=== PATIENT | female | born 1955 | race Caucasian/White ===

== ENCOUNTER 2019-06-03 09:24 | Outpatient (RCR) | payer MEDICARE, OTHER, SELFPAY ==
[2019-06-03 09:42] VITALS: BMI 25.2
[2019-06-03 10:02] VITALS: BP 108/89; PULSE 98; RESP 18; TEMP 36.3; O2SAT 94
== END 2019-06-08 23:59 | disposition home or self-care (01) ==
LOC: GILAB 09:24
PROVIDERS: PCP Family Medicine; Visit Provider Internal Medicine
DX: K51.90 Ulcerative colitis, unspecified, without complications (principal)
CPT/HCPCS: 96365; J1745; J7050

== ENCOUNTER 2019-06-17 09:19 | Outpatient (RCR) | payer MEDICARE, OTHER, SELFPAY ==
[2019-06-17 09:50] VITALS: BP 113/74; PULSE 85; RESP 18; TEMP 36.7; O2SAT 93; BMI 25.2
== END 2019-07-09 23:59 | disposition home or self-care (01) ==
LOC: GILAB 09:19
PROVIDERS: PCP Family Medicine; Visit Provider Internal Medicine
DX: K51.90 Ulcerative colitis, unspecified, without complications (principal)
CPT/HCPCS: 96365; 96366; J1745; J7050

== ENCOUNTER 2019-07-29 11:27 | Outpatient (CLI) | payer MEDICARE, OTHER, SELFPAY ==
[2019-07-29 12:27] VITALS: BP 106/70; PULSE 72; RESP 16; TEMP 36.7; O2SAT 98
[2019-07-29 14:58] VITALS: BP 112/78; PULSE 80; RESP 16; TEMP 36.6; O2SAT 94
[2019-07-29 15:21] VITALS: BP 124/70; PULSE 75; RESP 16; TEMP 36.9; O2SAT 94
== END 2019-07-29 11:28 | disposition home or self-care (01) ==
LOC: RHEOACUTE 11:28
PROVIDERS: PCP Family Medicine; Visit Provider Internal Medicine Rheumatology
DX: K51.90 Ulcerative colitis, unspecified, without complications (principal)
CPT/HCPCS: 96365; 96366; J1745; J7050

== ENCOUNTER 2019-09-23 09:26 | Outpatient (RCR) | payer MEDICARE, OTHER, SELFPAY ==
[2019-09-23 09:30] VITALS: BP 106/71; PULSE 85; RESP 16; TEMP 36.6; O2SAT 95; BMI 25.8
== END 2019-10-08 23:59 | disposition home or self-care (01) ==
LOC: GILAB 09:26
PROVIDERS: PCP Family Medicine; Visit Provider Internal Medicine
DX: K51.90 Ulcerative colitis, unspecified, without complications (principal)
CPT/HCPCS: 96365; J1745; J7050

== ENCOUNTER → 2019-11-04 17:10 | Outpatient (BNVA) | payer MEDICARE, OTHER, SELFPAY | PROVIDERS: PCP Family Medicine; Visit Provider Family Medicine | DX: J02.9 Acute pharyngitis, unspecified (principal); R51 Headache | CPT/HCPCS: 85025; 86308 ==

== ENCOUNTER 2019-11-18 10:57 | Outpatient (RCR) | payer MEDICARE, OTHER, SELFPAY ==
[2019-11-18 11:05] VITALS: BP 132/79; PULSE 95; RESP 18; TEMP 36.3; O2SAT 95
== END 2019-12-09 23:59 | disposition home or self-care (01) ==
LOC: GILAB 10:57
PROVIDERS: PCP Family Medicine; Visit Provider Internal Medicine
DX: K51.011 Ulcerative (chronic) pancolitis with rectal bleeding (principal); Z79.899 Other long term (current) drug therapy
CPT/HCPCS: 96365; J1745; J7050

== ENCOUNTER 2020-01-13 08:58 | Outpatient (RCR) | payer MEDICARE, OTHER, SELFPAY ==
[2020-01-13 09:23] VITALS: BP 121/79; PULSE 98; RESP 18; TEMP 36.7; O2SAT 93; BMI 25.8
== END 2020-02-08 23:59 | disposition home or self-care (01) ==
LOC: GILAB 08:58
PROVIDERS: PCP Internal Medicine; Visit Provider Internal Medicine
DX: Z79.899 Other long term (current) drug therapy (principal); K51.011 Ulcerative (chronic) pancolitis with rectal bleeding
CPT/HCPCS: 96365; J1745; J7050

== ENCOUNTER 2020-03-09 11:55 | Outpatient (RCR) | payer MEDICARE, OTHER, SELFPAY ==
[2020-03-09 12:30] VITALS: BP 120/83; PULSE 86; RESP 18; TEMP 36.2; O2SAT 95; BMI 24.7
== END 2020-03-09 23:59 | disposition home or self-care (01) ==
LOC: GILAB 11:55
PROVIDERS: PCP Internal Medicine; Visit Provider Internal Medicine
DX: K51.011 Ulcerative (chronic) pancolitis with rectal bleeding (principal); Z79.899 Other long term (current) drug therapy
CPT/HCPCS: 96365; 96366; J1745; J7050

== ENCOUNTER 2020-05-04 09:02 | Outpatient (RCR) | payer MEDICARE, OTHER, SELFPAY ==
[2020-05-04 09:10] VITALS: BP 112/80; PULSE 77; RESP 18; TEMP 36.4; O2SAT 95
== END 2020-05-10 23:59 | disposition home or self-care (01) ==
LOC: OPS 09:02
PROVIDERS: PCP Internal Medicine; Visit Provider Internal Medicine
DX: K51.011 Ulcerative (chronic) pancolitis with rectal bleeding (principal); Z79.899 Other long term (current) drug therapy
CPT/HCPCS: 96365; J1745; J7050

== ENCOUNTER 2020-06-16 14:10 | Outpatient (CLI) | payer MEDICARE, OTHER, SELFPAY ==
--- NOTE | 2020-06-16 14:17 | XRR_ITS ---
PROCEDURE INFORMATION: Exam: XR Left Shoulder Exam date and time: 06/16/2020 2:30 PM Age: 64 years old Clinical indication: Pain; Shoulder; Bilateral; Additional info: M25.519 - pain in unspecified shoulder TECHNIQUE: Imaging protocol: XR Left shoulder. Views: 1 view. COMPARISON: CR Shoulder 2+ views LEFT* [id number] 02/02/2018 11:36 AM FINDINGS: Bones/joints: No acute fracture. Glenohumeral joint space narrowing. Soft tissues: Normal. XR/XR shoulder LT 1V [id number] IMPRESSION: No acute findings. Glenohumeral degenerative/arthritic change.
--- NOTE | 2020-06-16 14:17 | XRR_ITS ---
PROCEDURE INFORMATION: Exam: XR Right Shoulder Exam date and time: 06/16/2020 2:32 PM Age: 64 years old Clinical indication: Pain; Shoulder; Bilateral; Additional info: M25.519 - pain in unspecified shoulder TECHNIQUE: Imaging protocol: XR Right shoulder. Views: 1 view. COMPARISON: CR XR shoulder LT 1V [id number] 06/16/2020 2:25 PM FINDINGS: Bones/joints: Normal. Soft tissues: Normal. XR/XR shoulder RT 1V IMPRESSION: No acute findings.
== END 2020-06-16 14:11 | disposition home or self-care (01) ==
PROVIDERS: PCP Internal Medicine; Visit Provider Internal Medicine
DX: M25.512 Pain in left shoulder (principal)
CPT/HCPCS: 73020

== ENCOUNTER 2020-06-29 08:57 | Outpatient (RCR) | payer MEDICARE, OTHER, SELFPAY ==
[2020-06-29 09:15] VITALS: BP 140/83; PULSE 78; RESP 18; TEMP 36.6; O2SAT 96
--- NOTE | 2020-06-29 10:38 | PC.NURSE ---
1030 Pt states she has had Remicaide infusion for approximately one year and has never had a reaction. Remicaide infusion started and after approximately 30 minutes, pt states she is beginning to have itching. Infusion stopped. VS checked with BP stable at 116/81, pulse ox 94% on RA and pulse 63. Dr. French notified. Orders received to give loratidine 20 mg po now and restart infusion in 20 minutes. Will continue to monitor.
[2020-06-29] MEDS: loratadine 10 mg Tablet 20 MG PO (10:43)
--- NOTE | 2020-06-29 11:35 | PC.NURSE ---
Addendum entered by Nori Yanez 06/29/20 11:57: Infusion was restarted at 1055. Infusion complete at 1155. No further itching or additional signs of allergic reaction noted. Pt informed to watch for return of itching, rash, swelling, or hives and contact Dr. French or go to the ER if symptoms return or worsen. Original Note: 1155 Pt states itching is much better. Remicaide infusion restarted. Pt tolerating well. No further itching.
== END 2020-07-08 23:59 | disposition home or self-care (01) ==
LOC: OPS 08:57
PROVIDERS: PCP Internal Medicine; Visit Provider Internal Medicine
DX: K51.011 Ulcerative (chronic) pancolitis with rectal bleeding (principal); Z79.899 Other long term (current) drug therapy
CPT/HCPCS: 96365; J1745; J7050

== ENCOUNTER 2020-08-24 09:22 | Outpatient (RCR) | payer MEDICARE, OTHER, SELFPAY ==
[2020-08-24 09:15] VITALS: BP 118/75; PULSE 89; RESP 18; TEMP 36.3; O2SAT 93
== END 2020-09-07 23:59 | disposition home or self-care (01) ==
LOC: GILAB 09:22
PROVIDERS: PCP Internal Medicine; Visit Provider Internal Medicine
DX: K51.011 Ulcerative (chronic) pancolitis with rectal bleeding (principal); Z79.899 Other long term (current) drug therapy
CPT/HCPCS: 96365; 96366; J1745; J7050

== ENCOUNTER 2020-10-19 08:51 | Outpatient (RCR) | payer MEDICARE, OTHER, SELFPAY ==
[2020-10-19 09:16] VITALS: BP 118/76; PULSE 82; RESP 18; TEMP 36.3; O2SAT 94
== END 2020-11-07 23:59 | disposition home or self-care (01) ==
LOC: GILAB 08:51
PROVIDERS: PCP Internal Medicine; Visit Provider Internal Medicine
DX: K51.011 Ulcerative (chronic) pancolitis with rectal bleeding (principal); Z79.899 Other long term (current) drug therapy
CPT/HCPCS: 96365; 96366; J1745; J7050

== ENCOUNTER → 2020-12-15 09:44 | Day surgery (SDC) | payer MEDICARE, OTHER, SELFPAY ==
[2020-12-15 10:13] VITALS: BP 132/78; PULSE 69; RESP 18; TEMP 36.6; O2SAT 96
[2020-12-15 10:21] VITALS: BMI 25.0
== END ==
PROVIDERS: PCP Internal Medicine; Visit Provider Internal Medicine
DX: K51.011 Ulcerative (chronic) pancolitis with rectal bleeding (principal); Z79.899 Other long term (current) drug therapy
CPT/HCPCS: 96365; 96366; J1745; J7050

== ENCOUNTER → 2021-02-09 09:59 | Day surgery (SDC) | payer MEDICARE, OTHER, SELFPAY ==
[2021-02-09 10:15] VITALS: BP 126/77; PULSE 84; RESP 18; TEMP 36.1; O2SAT 97
--- NOTE | 2021-02-09 11:24 | PC.NURSE ---
Pt c/o feeling itchy . Hives noted on pt arms and chest. VSS. BP 140/70. HR 71. Infusion stopped. Call put out to Dr. French for further orders.
--- NOTE | 2021-02-09 11:48 | PC.NURSE ---
Remicaide infusion not to be resumed per Dr. French. Follow-up appointment made with Dr. French on Feb.11. Pt instructed to list Remicaide as an allergy. VSS. No difficulty breathing. Redness and itching resolving. Pt instructed to return to ER if symptoms return or worsen.
== END ==
PROVIDERS: PCP Internal Medicine; Visit Provider Internal Medicine
DX: K51.90 Ulcerative colitis, unspecified, without complications (principal)
CPT/HCPCS: 96365; J1745; J7050

== ENCOUNTER 2021-06-01 | Outpatient (CLI) | payer MEDICARE, OTHER, SELFPAY | END 2021-06-01 23:59 | disposition home or self-care (01) | LOC: RAD 11-08 11:43 | PROVIDERS: PCP Internal Medicine; Visit Provider Internal Medicine | DX: K51.011 Ulcerative (chronic) pancolitis with rectal bleeding (principal) | CPT/HCPCS: 80053; 85651 ==

== ENCOUNTER → 2021-06-21 08:54 | Day surgery (SDC) | payer MEDICARE, OTHER, SELFPAY ==
[2021-06-21] MEDS: vedolizumab 300 MG in sodium chloride 0.9% 250 ML 250 MG IV (09:10)
[2021-06-21 09:18] VITALS: BP 125/75; PULSE 107; RESP 18; TEMP 36.3; O2SAT 94
== END ==
PROVIDERS: PCP Internal Medicine; Visit Provider Internal Medicine
DX: K51.90 Ulcerative colitis, unspecified, without complications (principal)
CPT/HCPCS: 96365; J3380; J7050

== ENCOUNTER → 2021-07-06 10:00 | Day surgery (SDC) | payer MEDICARE, OTHER, SELFPAY ==
[2021-07-06 10:06] VITALS: BP 134/75; PULSE 67; RESP 18; TEMP 36.6; O2SAT 95
[2021-07-06] MEDS: vedolizumab 300 MG in sodium chloride 0.9% 250 ML 250 MG IV (10:21)
== END ==
PROVIDERS: PCP Internal Medicine; Visit Provider Internal Medicine
DX: K51.011 Ulcerative (chronic) pancolitis with rectal bleeding (principal)
CPT/HCPCS: 96365; J3380; J7050

== ENCOUNTER → 2021-08-16 08:51 | Day surgery (SDC) | payer MEDICARE, OTHER, SELFPAY ==
[2021-08-16] MEDS: vedolizumab 300 MG in sodium chloride 0.9% 250 ML 250 MG IV (09:05)
[2021-08-16 09:09] VITALS: BP 114/73; PULSE 85; RESP 18; TEMP 36.2; O2SAT 94
== END ==
PROVIDERS: PCP Internal Medicine; Visit Provider Internal Medicine
DX: K51.011 Ulcerative (chronic) pancolitis with rectal bleeding (principal)
CPT/HCPCS: 96365; J3380; J7050

== ENCOUNTER → 2021-10-12 08:57 | Day surgery (SDC) | payer MEDICARE, OTHER, SELFPAY ==
[2021-10-12] MEDS: vedolizumab 300 MG in sodium chloride 0.9% 250 ML 250 MG IV (09:11)
[2021-10-12 09:15] VITALS: BP 125/89; PULSE 92; RESP 18; TEMP 36.4; O2SAT 95
== END ==
PROVIDERS: PCP Internal Medicine; Visit Provider Internal Medicine
DX: K51.90 Ulcerative colitis, unspecified, without complications (principal)
CPT/HCPCS: 96365; J3380; J7050

== ENCOUNTER → 2021-12-06 08:50 | Day surgery (SDC) | payer MEDICARE, OTHER, SELFPAY ==
[2021-12-06 09:10] VITALS: BP 114/74; PULSE 90; RESP 18; TEMP 36.2; O2SAT 94
[2021-12-06] MEDS: vedolizumab 300 MG in sodium chloride 0.9% 250 ML 250 MG IV (09:34)
== END ==
PROVIDERS: PCP Internal Medicine; Visit Provider Internal Medicine
DX: K51.90 Ulcerative colitis, unspecified, without complications (principal)
CPT/HCPCS: 96365; J3380; J7050

== ENCOUNTER → 2022-02-07 11:44 | Day surgery (SDC) | payer MEDICARE, OTHER, SELFPAY ==
[2022-02-07] MEDS: vedolizumab 300 MG in sodium chloride 0.9% 250 ML 500 MG IV (12:30)
[2022-02-07 12:39] LABS: Basophils # 0.1 10^3/uL (0.0-0.1); Basophils % 0.9 %; Eosinophils # 0.5 10^3/uL (0.0-0.8); Eosinophils % 5.3 %; Hematocrit 36.3 % (37.0-47.0); Hemoglobin 10.8 g/dL (11.5-15.3); Lymphocytes # 2.5 10^3/uL (0.8-4.8); Lymphocytes % 28.2 %; Mean Corpuscular HGB Conc 29.8 g/dL (30.0-36.0); Mean Corpuscular Hemoglobin 25.7 pg (28.0-34.0); Mean Corpuscular Volume 86.2 fl (81-99); Mean Platelet Volume 10.4 fL (7.4-10.4); Monocytes # 0.6 10^3/uL (0.2-0.9); Monocytes % 7.1 %; Neutrophils # 5.18 10^3/uL (1.8-7.7); Neutrophils % 58.1 %; Nucleated Red Blood Cells % 0 %; Platelet Count 432 10^3/cmm (130-400); Red Blood Count 4.21 10^6/uL (4.1-5.3); Red Cell Distribution Width 15.9 % (12.1-15.1); White Blood Count 8.9 10^3/uL (4.0-10.0)
[2022-02-07 12:49] VITALS: BP 116/79; PULSE 98; RESP 18; TEMP 36.4; O2SAT 91
[2022-02-07 13:01] LABS: Alanine Aminotransferase 11 U/L (0-33); Albumin Level 3.3 g/dL (3.5-5.2); Alkaline Phosphatase 159 U/L (35-105); Anion Gap 15.2 (5-19); Aspartate Amino Transferase 15 U/L (0-32); Blood Urea Nitrogen 8 mg/dL (8-23); C Reactive Protein 5.2 mg/L (0.0-4.9); Calcium 9.4 mg/dL (8.5-10.5); Carbon Dioxide 22 mmol/L (22-29); Chloride 102 mmol/L (98-107); Glomerular Filtration Rate 99.4 mL/min (90-130); Glucose 99 mg/dL (65-115); Osmolality Calculated 278 mOsm/kg (285-295); Potassium 4.2 mmol/L (3.5-5.1); Sodium 135 mmol/L (136-145); Total Bilirubin 0.3 mg/dL (0.15-1.2); Total Protein 7.3 g/dL (6.6-8.7)
== END ==
PROVIDERS: PCP Internal Medicine; Visit Provider Internal Medicine Gastroenterology
DX: K51.019 Ulcerative (chronic) pancolitis with unspecified complications (principal)
CPT/HCPCS: 36415; 80053; 85025; 86140; 96365; J3380; J7050

== ENCOUNTER 2022-02-15 12:16 | Outpatient (CLI) | payer MEDICARE, OTHER, SELFPAY | END 2022-02-15 12:17 | disposition home or self-care (01) | PROVIDERS: PCP Internal Medicine; Visit Provider Internal Medicine Gastroenterology | DX: K51.019 Ulcerative (chronic) pancolitis with unspecified complications (principal) | CPT/HCPCS: 83630; 87493 ==

== ENCOUNTER → 2022-02-21 12:48 | Day surgery (SDC) | payer MEDICARE, OTHER, SELFPAY ==
[2022-02-21] MEDS: vedolizumab 300 MG in sodium chloride 0.9% 250 ML 500 MG IV (13:07)
[2022-02-21 13:19] VITALS: BP 119/72; PULSE 96; RESP 18; TEMP 36.4; O2SAT 99
== END ==
PROVIDERS: PCP Internal Medicine; Visit Provider Internal Medicine Gastroenterology
DX: K51.019 Ulcerative (chronic) pancolitis with unspecified complications (principal)
CPT/HCPCS: 96365; J3380; J7050

== ENCOUNTER → 2022-02-22 14:20 | Outpatient (BNVA) | payer MEDICARE, OTHER, SELFPAY | PROVIDERS: PCP Internal Medicine; Visit Provider Internal Medicine | DX: R53.83 Other fatigue (principal); R06.09 Other forms of dyspnea; Z72.0 Tobacco use | CPT/HCPCS: 80053; 83550; 84443; 85025 ==

== ENCOUNTER → 2022-03-21 11:24 | Day surgery (SDC) | payer MEDICARE, OTHER, SELFPAY ==
[2022-03-21 11:30] VITALS: BP 119/75; PULSE 86; RESP 18; TEMP 36.6; O2SAT 92
[2022-03-21] MEDS: vedolizumab 300 MG in sodium chloride 0.9% 250 ML 500 MG IV (11:56)
== END ==
PROVIDERS: PCP Internal Medicine; Visit Provider Internal Medicine Gastroenterology
DX: K51.90 Ulcerative colitis, unspecified, without complications (principal)
CPT/HCPCS: 96365; J3380; J7050

== ENCOUNTER 2022-04-27 12:17 | Outpatient (CLI) | payer MEDICARE, OTHER, SELFPAY ==
--- NOTE | 2022-04-27 12:30 | CT_ITS ---
WS: [id number] LDCT LUNG CANCER SCREENING HISTORY: SMoker TECHNIQUE: Axial imaging performed from the apices to 1 cm below the costophrenic angles. Coronal and sagittal reformats are submitted with axial MIP series. All CT scans at [facility] use at least one of these dose optimization techniques: automated exposure control; mA and/or kV adjustment per patient size (includes targeted exams where dose is matched to clinical indication); or iterativ e reconstruction. DLP: 49.00 mGy.cm DIvol: Mean CTDIvol: 0.90 (mGy) COMPARISON: Chest CT 11/18/2016 Diagnostic quality: Satisfactory Lung Nodules: Irregular shaped consolidation measuring 10 mm in the lingula. This nodule was present on the prior study from 2017 and has increased slightly in diameter and also density. No additional n odule or mass. No endobronchial lesion. Lungs: Chronic emphysema. Heart: Normal size heart. No effusion. Moderate coronary artery calcification. Other findings: Atherosclerosis aorta, mild. Small normal appearing mediastinal and hilar lymph nodes . Stable 11 mm LEFT adrenal nodule. CT/CT lung screening 74214 IMPRESSION: LUNG-RADS: 3-Probably Benign FOLLOW UP: 6 Month LDCT OTHER FINDINGS (S MODIFIER): None. Lingular nodule has been present since 2017. Since that time very slight increa se in size and density. Could be a low-grade neoplasm. Recommend 6 month low do se CT follow-up. PET/CT imaging may provide additional information at this time .
== END 2022-04-27 12:18 | disposition home or self-care (01) ==
PROVIDERS: PCP Internal Medicine; Visit Provider Internal Medicine
DX: Z12.2 Encounter for screening for malignant neoplasm of respiratory organs (principal); F17.210 Nicotine dependence, cigarettes, uncomplicated; R06.09 Other forms of dyspnea
CPT/HCPCS: 71271

== ENCOUNTER 2022-04-28 13:46 | Outpatient (CLI) | payer MEDICARE, OTHER, SELFPAY | END 2022-04-28 13:47 | disposition home or self-care (01) | LOC: RT 13:48 | PROVIDERS: PCP Internal Medicine; Visit Provider Internal Medicine | DX: R06.09 Other forms of dyspnea (principal) | CPT/HCPCS: 94060; J7613 ==

== ENCOUNTER → 2022-05-02 11:22 | Day surgery (SDC) | payer MEDICARE, OTHER, SELFPAY ==
[2022-05-02] MEDS: vedolizumab 300 MG in sodium chloride 0.9% 250 ML 500 MG IV (11:33)
[2022-05-02 11:37] VITALS: BP 122/79; PULSE 92; RESP 18; TEMP 36.1; O2SAT 97
[2022-05-02 12:19] LABS: Basophils # 0.1 10^3/uL (0.0-0.1); Basophils % 0.9 %; Eosinophils # 0.3 10^3/uL (0.0-0.8); Eosinophils % 4.7 %; Hematocrit 36.1 % (37.0-47.0); Hemoglobin 10.6 g/dL (11.5-15.3); Lymphocytes # 2.3 10^3/uL (0.8-4.8); Lymphocytes % 34.4 %; Mean Corpuscular HGB Conc 29.4 g/dL (30.0-36.0); Mean Corpuscular Hemoglobin 24.4 pg (28.0-34.0); Mean Corpuscular Volume 83.2 fl (81-99); Mean Platelet Volume 10.7 fL (7.4-10.4); Monocytes # 0.6 10^3/uL (0.2-0.9); Monocytes % 8.4 %; Neutrophils # 3.49 10^3/uL (1.8-7.7); Neutrophils % 51.5 %; Nucleated Red Blood Cells % 0 %; Platelet Count 358 10^3/cmm (130-400); Red Blood Count 4.34 10^6/uL (4.1-5.3); Red Cell Distribution Width 17.2 % (12.1-15.1); White Blood Count 6.8 10^3/uL (4.0-10.0)
== END ==
PROVIDERS: PCP Internal Medicine; Visit Provider Internal Medicine Gastroenterology
DX: K51.00 Ulcerative (chronic) pancolitis without complications (principal)
CPT/HCPCS: 36415; 85025; 96365; J3380; J7050

== ENCOUNTER 2022-06-03 09:29 | Outpatient (CLI) | payer MEDICARE, OTHER, SELFPAY ==
[2022-06-03 09:55] VITALS: BMI 25.8
--- NOTE | 2022-06-03 09:57 | ECG_ITS ---
[facility] Test Date: 2022-06-03 Pat Name: Valentine Jones Department: Room: Gender: Female Jewelry Dipper: : 1955 Requested By: Rizwan French Order Number: [id number] Li MD: William Hughes M.D. Interpretive Statements NAME OF STUDY: LEXISCAN SESTAMIBI STRESS TEST INDICATION: [riddle, ] Procedure: At the baseline, the blood pressure was 132/79 mmHg with a heart rate of 68 bpm. The electrocardiogram showed normal sinus rhythm, left axis deviation with normal ST and T's. The Lexiscan was infused over a period of 20 seconds. A total of 0.4 mg of Lexiscan was infused. The stress phase was continued for a total of 5 minutes. Heart rate was at the end of stress phase was 89 bpm and a blood pressure of 111/69 mmHg. The EKG at the peak infusion revealed normal sinus rhythm with no significant ST-T wave changes. Sestamibi was injected 20 seconds after the Lexiscan infusion. Blood pressure at the end of recovery phase was 113/68 mmHg with a heart rate of 79 bpm. Conclusion: 1. Normal EKG response to Lexiscan infusion 2. No Lexiscan induced chest pain or cardiac arrhythmia. 3. Normal blood pressure and heart rate response. 4. Sestamibi/sestamibi perfusion scan pending; see separate report. Electronically Signed On 06-11-2022 18:46:06 YOUTH SUPPORT WORKER by William Hughes M.D. [id number]
--- NOTE | 2022-06-03 09:58 | NMCV_ITS ---
NM karolina perf SPECT r/s* [id number] Valentine Jones Age: 66 Gender: F : 1955 Exam Date: 06/03/2022 09:58 Ordering Phys: Rizwan French MD Technologist: WILBERTO Paz Exam [facility] Indications: SHORTNESS OF BREATH STRESS TEST Please see separate stress test report in [facility]any for full findings IMAGE PROTOCOL Rest/Stress 1 Lexiscan Day Radiopharmaceutical Dose (mCi) Administration Site Administered by Rest: Tc-99m 10.9 IV Hector Moore, OIL DRILLING ENGINEER Sestamibi Stress:Tc-99m 31.5 IV WILBERTO Paz Sestamibi Rest: 03-Jun-2022 60 Discovery 630 Stress: 03-Jun-2022 30 Discovery 630 0.4mg Lexiscan. Supine position only as patient was unable to lay prone. SPECT RESULTS Technical Quality: Excellent Raw Data Analysis: Normal Image Corrections: No attenuation or motion correction applied Summed Stress Score: 0 Summed Rest Score: 0 Summed Difference Score: 0 PERFUSION FINDINGS SPECT images demonstrate homogeneous tracer distribution throughout the myocardium. FUNCTIONAL RESULTS (calculated via Gated SPECT) Stress Image LV EF (%): 79 Stress EDV (mL):70 TID: 1.09 Stress ESV (mL):15 FUNCTIONAL FINDINGS: There is normal left ventricular systolic function. IMPRESSIONS 1. Normal myocardial perfusion imaging with no evidence of ischemia 2. LV systolic function is normal William Hughes MD (Electronically Signed) Final Date: 03 June 2022 14:11 S
[2022-06-03 12:02] VITALS: BP 113/68; PULSE 79
[2022-06-03] MEDS: regadenoson 0.4 Mg/5 ml Syringe IVP (12:03)
== END 2022-06-03 09:30 | disposition home or self-care (01) ==
LOC: CDL 09:31
PROVIDERS: PCP Internal Medicine; Visit Provider Internal Medicine
DX: R06.02 Shortness of breath (principal); R06.09 Other forms of dyspnea
CPT/HCPCS: 36415; 78452; 93017; 96374; A9500; J2785

== ENCOUNTER → 2022-06-13 11:18 | Day surgery (SDC) | payer MEDICARE, OTHER, SELFPAY ==
[2022-06-13] MEDS: vedolizumab 300 MG in sodium chloride 0.9% 250 ML 500 MG IV (11:30)
[2022-06-13 11:45] VITALS: BP 95/72; PULSE 84; RESP 18; TEMP 36.7; O2SAT 90
[2022-06-13 11:58] LABS: Basophils # 0.1 10^3/uL (0.0-0.1); Eosinophils # 0.2 10^3/uL (0.0-0.8); Eosinophils % 2.6 %; Hematocrit 39.7 % (37.0-47.0); Hemoglobin 11.8 g/dL (11.5-15.3); Lymphocytes # 2.7 10^3/uL (0.8-4.8); Lymphocytes % 37.3 %; Mean Corpuscular HGB Conc 29.7 g/dL (30.0-36.0); Mean Corpuscular Hemoglobin 24.4 pg (28.0-34.0); Mean Corpuscular Volume 82.2 fl (81-99); Mean Platelet Volume 10.6 fL (7.4-10.4); Monocytes # 0.6 10^3/uL (0.2-0.9); Monocytes % 7.6 %; Neutrophils # 3.77 10^3/uL (1.8-7.7); Neutrophils % 51.4 %; Nucleated Red Blood Cells % 0 %; Platelet Count 343 10^3/cmm (130-400); Red Blood Count 4.83 10^6/uL (4.1-5.3); Red Cell Distribution Width 17.3 % (12.1-15.1); White Blood Count 7.3 10^3/uL (4.0-10.0)
== END ==
PROVIDERS: PCP Internal Medicine; Visit Provider Internal Medicine Gastroenterology
DX: K51.00 Ulcerative (chronic) pancolitis without complications (principal)
CPT/HCPCS: 36415; 85025; 96365; J3380; J7050

== ENCOUNTER → 2022-06-15 15:04 | Outpatient (BNVA) | payer MEDICARE, OTHER, SELFPAY | PROVIDERS: PCP Internal Medicine; Visit Provider Dermatology | DX: C44.519 Basal cell carcinoma of skin of other part of trunk (principal) | CPT/HCPCS: 88305 ==

== ENCOUNTER 2022-07-06 15:28 | Outpatient (CLI) | payer MEDICARE, OTHER, SELFPAY ==
--- NOTE | 2022-07-06 15:54 | XR_ITS ---
WS: [id number] Exam: XR pelvis 1-2V* [id number] Date/Time of Exam: 07/06/2022 3:55 PM Reason For Exam: PAIN IN RIGHT HIP Comparison 11/26/2018. A total hip prosthesis is in place in satisfactory position. No sign of loosening or fracture. Normal soft tissues. There is moderately advanced degenerative narrowing of the left hip joint. The pelvis is intact. XR/XR pelvis 1-2V* [id number] IMPRESSION: 1. Intact right total hip replacement without change or complication since the prior study. 2. Moderately severe degenerative change of the left hip with significant joint space thinning. 3. The pelvis is otherwise intact.
== END 2022-07-06 15:29 | disposition home or self-care (01) ==
PROVIDERS: PCP Internal Medicine; Visit Provider Internal Medicine
DX: M16.11 Unilateral primary osteoarthritis, right hip (principal); Z96.641 Presence of right artificial hip joint
CPT/HCPCS: 72170

== ENCOUNTER → 2022-07-25 10:54 | Day surgery (SDC) | payer MEDICARE, OTHER, SELFPAY ==
[2022-07-25 11:10] VITALS: BP 125/77; PULSE 90; RESP 18; TEMP 36.3; O2SAT 95
[2022-07-25 11:15] LABS: Basophils % 0.5 %; Eosinophils # 0.4 10^3/uL (0.0-0.8); Eosinophils % 5.4 %; Hematocrit 39.3 % (37.0-47.0); Hemoglobin 12.3 g/dL (11.5-15.3); Lymphocytes # 2.7 10^3/uL (0.8-4.8); Lymphocytes % 32.5 %; Mean Corpuscular HGB Conc 31.3 g/dL (30.0-36.0); Mean Corpuscular Hemoglobin 26.1 pg (28.0-34.0); Mean Corpuscular Volume 83.4 fl (81-99); Mean Platelet Volume 10.2 fL (7.4-10.4); Monocytes # 0.6 10^3/uL (0.2-0.9); Monocytes % 7.1 %; Neutrophils # 4.45 10^3/uL (1.8-7.7); Neutrophils % 54.3 %; Nucleated Red Blood Cells % 0 %; Platelet Count 331 10^3/cmm (130-400); Red Blood Count 4.71 10^6/uL (4.1-5.3); Red Cell Distribution Width 18.1 % (12.1-15.1); White Blood Count 8.2 10^3/uL (4.0-10.0)
[2022-07-25] MEDS: vedolizumab 300 MG in sodium chloride 0.9% 250 ML 500 MG IV (11:19)
[2022-07-25 12:03] LABS: Alanine Aminotransferase 8 U/L (0-33); Alkaline Phosphatase 168 U/L (35-105); Aspartate Amino Transferase 15 U/L (0-32); Globulin 3.4 g/dL (1.3-4.6); Total Bilirubin 0.2 mg/dL (0.15-1.2); Total Protein 7.4 g/dL (6.6-8.7)
== END ==
PROVIDERS: PCP Internal Medicine; Visit Provider Internal Medicine Gastroenterology
DX: K51.00 Ulcerative (chronic) pancolitis without complications (principal)
CPT/HCPCS: 36415; 80076; 85025; 96365; J3380; J7050

== ENCOUNTER 2022-08-03 14:52 | Outpatient (CLI) | payer MEDICARE, OTHER, SELFPAY ==
--- NOTE | 2022-08-03 14:58 | MM_ITS ---
WS: [id number] VIEWS: MLO and CC views both breasts. 3D digital tomosynthesis is also included in this exam. Comparison made with prior exam of 09/14/2011, 05/08/2013, 05/09/2014, 05/12/2015, 11/18/2016, 12/05/2017.. Findings: There was no sign of mass, architectural distortion or suspicious calcification in either breast. Sc attered fibroglandular densities MM/[place] [id number] Impression: BI-RADS: 2-Benign FOLLOW-UP: 1 Year Follow-up This mammogram was also analyzed by the Computer Aided Detection System R2 Imag e Product Safety Compliance Leader.
== END 2022-08-03 14:53 | disposition home or self-care (01) ==
LOC: RAD 14:56
PROVIDERS: PCP Internal Medicine; Visit Provider Internal Medicine
DX: Z12.31 Encounter for screening mammogram for malignant neoplasm of breast (principal)
CPT/HCPCS: 77063; 77067

== ENCOUNTER → 2022-08-29 15:33 | Outpatient (BNVA) | payer MEDICARE, OTHER, SELFPAY | PROVIDERS: PCP Internal Medicine; Referring Provider Internal Medicine; Visit Provider Specialist | DX: M16.12 Unilateral primary osteoarthritis, left hip (principal); Z01.818 Encounter for other preprocedural examination | CPT/HCPCS: 36415; 73522; 80053; 85025; 99204 ==

== ENCOUNTER → 2022-09-06 09:42 | Day surgery (SDC) | payer MEDICARE, OTHER, SELFPAY ==
[2022-09-06] MEDS: vedolizumab 300 MG in sodium chloride 0.9% 250 ML 500 MG IV (09:50)
[2022-09-06 09:58] VITALS: BP 123/72; PULSE 80; RESP 18; TEMP 36.3; O2SAT 95
[2022-09-06 10:05] LABS: Basophils # 0.1 10^3/uL (0.0-0.1); Basophils % 0.7 %; Eosinophils # 0.6 10^3/uL (0.0-0.8); Eosinophils % 7.8 %; Hemoglobin 11.7 g/dL (11.5-15.3); Lymphocytes # 2.2 10^3/uL (0.8-4.8); Lymphocytes % 30.6 %; Mean Corpuscular HGB Conc 30.8 g/dL (30.0-36.0); Mean Corpuscular Hemoglobin 27.1 pg (28.0-34.0); Mean Corpuscular Volume 88.2 fl (81-99); Mean Platelet Volume 9.8 fL (7.4-10.4); Monocytes # 0.7 10^3/uL (0.2-0.9); Monocytes % 9.2 %; Neutrophils # 3.65 10^3/uL (1.8-7.7); Neutrophils % 51.4 %; Nucleated Red Blood Cells % 0 %; Platelet Count 340 10^3/cmm (130-400); Red Blood Count 4.31 10^6/uL (4.1-5.3); White Blood Count 7.1 10^3/uL (4.0-10.0)
--- NOTE | 2022-09-06 10:40 | PC.NURSE ---
Pt states she is scheduled for total hip surgery in [address] Gonzales at [facility] in [place] notified. Message left with nursing staff in regard to Entyvio being resumed October 18, following hip surgery.
== END ==
PROVIDERS: PCP Internal Medicine; Visit Provider Internal Medicine Gastroenterology
DX: K51.00 Ulcerative (chronic) pancolitis without complications (principal)
CPT/HCPCS: 36415; 85025; 96365; J3380; J7050

== ENCOUNTER → 2022-09-13 10:26 | Outpatient (BNVA) | payer MEDICARE, OTHER, SELFPAY | PROVIDERS: PCP Internal Medicine; Visit Provider Clinical Nurse Specialist Adult Health | DX: Z01.818 Encounter for other preprocedural examination (principal); R31.9 Hematuria, unspecified; R80.9 Proteinuria, unspecified | CPT/HCPCS: 81000; 87086 ==

== ENCOUNTER 2022-09-14 07:14 | Outpatient (CLI) | payer MEDICARE, OTHER, SELFPAY | END 2022-09-14 07:15 | disposition home or self-care (01) | LOC: RT 09-16 07:22 | PROVIDERS: PCP Internal Medicine; Visit Provider Specialist | DX: Z01.810 Encounter for preprocedural cardiovascular examination (principal); M16.12 Unilateral primary osteoarthritis, left hip | CPT/HCPCS: 93005 ==

== ENCOUNTER 2022-09-16 15:30 | Outpatient (CLI) | payer MEDICARE, OTHER, SELFPAY ==
--- NOTE | 2022-09-16 | US_ITS ---
WS: [id number] RIGHT UPPER QUADRANT ULTRASOUND HISTORY: Elevated alkaline phosphatase COMPARISON: 11/19/2007 Liver: 15.3 cm in length. Normal size liver and echogenicity. No bile duct dilatation or mass. Portal Vein: Normal hepatopetal flow with monophasic waveform. Gallbladder: Status post cholecystectomy. CBD: 0.5 cm Pancreas: Normal size and echogenicity. Right kidney: 9.8 cm in length. Normal size and echogenicity. No hydronephrosis or mass. Aorta and IVC: Unremarkable abdominal aorta and IVC. No ascites. US/US abdomen limited [id number] IMPRESSION: 1. Prior cholecystectomy. 2. No bile duct dilatation. Normal liver.
[2022-09-16 17:49] LABS: Alanine Aminotransferase 9 U/L (0-33); Albumin Level 4.2 g/dL (3.5-5.2); Alkaline Phosphatase 191 U/L (35-105); Aspartate Amino Transferase 16 U/L (0-32); Globulin 3.2 g/dL (1.3-4.6); Total Bilirubin 0.2 mg/dL (0.15-1.2); Total Protein 7.4 g/dL (6.6-8.7)
== END 2022-09-16 15:31 | disposition home or self-care (01) ==
PROVIDERS: PCP Internal Medicine; Visit Provider Nurse Practitioner
DX: K51.019 Ulcerative (chronic) pancolitis with unspecified complications (principal); R74.8 Abnormal levels of other serum enzymes; Z90.49 Acquired absence of other specified parts of digestive tract
CPT/HCPCS: 76705; 80076

== ENCOUNTER 2022-09-20 10:31 | Observation (INO) | payer MEDICARE, OTHER, SELFPAY ==
[2022-09-14 10:17] VITALS: BMI 25.8
--- NOTE | 2022-09-14 10:30 | ANES.PREANE2 ---
Pre-Anesthetic Assessment Height/Weight: Height 1.7 m Weight 74.843 kg Operation Date: 09/20/22 14:30 Proposed Procedures p LEFT TOTAL HIP ARTHROPLASTY 29735,M16.9(Left) - Julia Sanderson MD Familial anesthetic complications: None Was Beta [place] taken within 24 hours: N/A Was Clonidine taken within 24 hours: N/A Social No alcohol and No tobacco former smoker Exam alert, oriented x 3, clear to auscultation bilaterally and regular rate & rhythm Airway Mallampati: Class II Dentition: full Pulmonary Chronic Obstructive Pulmonary Disease (mild) CV/HEM negative stress test 06/02 (ordered by dr. bhatt) GI ulcerative colitis on mesalamine and entyvio. Last use of steroids approximately 1 year ago Anesthetic Plan ASA status: 3 Anesthesia: Regional (specify below) (spinal) Risk of > 500 ml blood loss (7ml/kg in children): Yes, adequate IV access and fluids planned Medications/Allergies Home Medications Medication Instructions Recorded Confirmed Last Taken Type Benadryl Allergy 25 mg pe PO PRN 12/15/20 09/14/22 09/08/22 History vedolizumab 300 mg intravenous 300 mg IV .EVERY 8 WEEKS #1 ea 11/30/21 09/14/22 09/06/22 Rx solution (Entyvio) alprazolam 0.5 mg tablet 0.5 mg PO BEDTIME #30 tabs 01/31/22 09/14/22 09/13/22 Rx mesalamine 1.2 gram tablet,delayed 1.2 g PO DAILY 02/07/22 09/14/22 09/13/22 History release duloxetine 60 mg capsule,delayed 60 mg PO DAILY 06/15/22 09/14/22 09/13/22 History release Allergies Allergy/AdvReac Type Severity Reaction Status Date / Time codeine Allergy Unknown Verified 09/14/22 10:13 infliximab [From Remicade] Allergy ALGY-Hives Verified 09/14/22 10:13 [facility] Anesthesia Medical History Chronic diarrhea COPD (chronic obstructive pulmonary disease) Generalized anxiety disorder History of nonmelanoma skin cancer Infliximab (Remicade) long-term use Primary osteoarthritis Tobacco abuse Surgical History History of appendectomy History of back surgery History of cholecystectomy History of colonoscopy Family History Other Cancer Hypertension Social History Smoking and tobacco status: former smoker Household members: significant other Marital status: Current gender identity: Female Data Anesthesia Cardiac Studies: Sestamibi Stress Test (Cardiology) 06/03/22
--- NOTE | 2022-09-14 10:31 | ECG_ITS ---
[facility] Test Date: 2022-09-14 Pat Name: Valentine Jones Department: Room: Gender: Female Fitting Room Inspector: : 1955 Requested By: Mattie Gee Order Number: [id number] Jen MD: William Hughes M.D. Measurements Intervals [place] Rate: 70 P: 16 TN: 174 QRS: -15 QRSD: 92 T: 51 QT: 378 QTc: 409 Interpretive Statements SINUS RHYTHM LOW QRS VOLTAGE IN PRECORDIAL LEADS [QRS DEFLECTION < 1.0 mV IN CHEST LEADS] Compared to ECG 04/19/2018 13:30:09 Low QRS voltage now present Electronically Signed On 09-14-2022 12:30:16 CDT by William Hughes M.D. [id number]
[2022-09-20] VITALS (22 sets, daily range): BP systolic 96–132; BP diastolic 62–86; PULSE 78–107; RESP 12–17; TEMP 36–36.9; O2SAT 90–98
[2022-09-20] MEDS: gabapentin 300 mg Capsule PO (06:14)
[2022-09-20] MEDS: acetaminophen 1,000 MG/100 ML PIGGYBACK 400 MG IV ×3 (06:23→22:19)
--- NOTE | 2022-09-20 06:51 | W.PM.OPSUD ---
Surgery/Procedure H&P Update DATE OF PROCEDURE: September 20, 2022 DATE H&P PERFORMED: 09/13/22 H&P UPDATE INFORMATION: I have reviewed H&P completed within last 30 days, I have examined patient prior to procedure, No changes to prior documentation and H&P is in [facility] EMR on date indicated PLANNED PROCEDURE: Operation Date: 09/20/22 07:00 Proposed Procedures p LEFT TOTAL HIP ARTHROPLASTY 82398,M16.9(Left) - Julia Sanderson MD Related Problem List Diagnoses (1) Primary osteoarthritis of left hip:
[2022-09-20] MEDS: ceFAZolin 2,000 MG in sodium chloride 0.9% (plus) 50 ML 100 MG IV ×2 (06:57→17:46)
[2022-09-20] MEDS: vancomycin 1,000 MG SDV 1000 MG XX (08:39)
[2022-09-20] MEDS: ceFAZolin 1,000 mg SDV 1000 MG IRRIGATION (08:40)
[2022-09-20 09:47] LABS: Basophils # 0.1 10^3/uL (0.0-0.1); Basophils % 0.5 %; Eosinophils # 0.7 10^3/uL (0.0-0.8); Eosinophils % 4.3 %; Hematocrit 32.1 % (37.0-47.0); Hemoglobin 9.7 g/dL (11.5-15.3); Lymphocytes # 3.1 10^3/uL (0.8-4.8); Lymphocytes % 18.6 %; Mean Corpuscular HGB Conc 30.2 g/dL (30.0-36.0); Mean Corpuscular Hemoglobin 27.4 pg (28.0-34.0); Mean Corpuscular Volume 90.7 fl (81-99); Mean Platelet Volume 10.6 fL (7.4-10.4); Monocytes # 0.5 10^3/uL (0.2-0.9); Monocytes % 2.9 %; Neutrophils # 12.02 10^3/uL (1.8-7.7); Neutrophils % 72.6 %; Nucleated Red Blood Cells % 0 %; Platelet Count 377 10^3/cmm (130-400); Red Blood Count 3.54 10^6/uL (4.1-5.3); Red Cell Distribution Width 15.7 % (12.1-15.1); White Blood Count 16.6 10^3/uL (4.0-10.0)
--- NOTE | 2022-09-20 10:17 | ANES.PAUD2 ---
Pre-Anesthetic Update Pre-Anesthetic Assessment: Date of Surgery/Procedure: 09/20/22 Proposed Procedure: Operation Date: 09/20/22 07:00 Proposed Procedures p LEFT TOTAL HIP ARTHROPLASTY 20428,M16.9(Left) - Julia Sanderson MD Any changes to Pre-Anesthetic Assessment?: No Last Intake: Intake Last Liquid Date 09/19/22 Last Liquid Time 22:00 Last Solid Date 09/19/22 Last Solid Time 21:00 Labs Last 48hrs: Short CBC 09/20/22 Range/Units 09:15 WBC 16.6 H (4.0-10.0) 10^3/ uL Hgb 9.7 L (11.5-15.3) g/dL Hct 32.1 L (37.0-47.0) % MCV 90.7 (81-99) fl Plt Count 377 (130-400) 10^3/c mm Neut % (Auto) 72.6 % Neut # (Auto) 12.02 H (1.8-7.7) 10^3/u L Vitals: Temperature 98.4 F 09/20/22 05:52 Temperature Source Temporal Artery S can 09/20/22 05:52 Pulse Rate 107 H 09/20/22 05:52 Respiratory Rate 16 09/20/22 05:52 Blood Pressure 132/86 09/20/22 05:52 Blood Pressure Gabby n 101 09/20/22 05:52 Pulse Oximetry 93 09/20/22 05:52 Oxygen Delivery Me thod Room Air 09/20/22 05:52 Exam: Pre-Anes Outpt Exam: alert, oriented x 3, clear to auscultation bilaterally and regular rate & rhythm Cardiac Studies: Sestamibi Stress Test (Cardiology) 06/03/22
--- NOTE | 2022-09-20 10:24 | XR_ITS ---
WS: [id number] XR pelvis 1-2V* [id number] REASON FOR EXAM: Status post left total hip arthroplasty FINDINGS: Total left hip arthroplasty. Components of the prosthesis are intact and in proper position and alignment. No focal bone abnormality. XR/XR pelvis 1-2V* [id number] IMPRESSION: Total left hip arthroplasty without abnormality.
--- NOTE | 2022-09-20 10:25 | PM.OP ---
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 Procedure done: Left total hip arthroplasty Implants: The Beba total hip system with a size 56 mm by F alpha code Trident II Tritanium acetabular shell with an MDM liner size 46 inner diameter by F alpha code.? A size 6 Accolade II 132? neck angle hip stem with a size 28 mm x +0 mm Biolox delta ceramic femoral head and a jewish MDM X3 insert size 46F Specimens removed/disposition: Femoral head, disposed of Pathology: none sent Surgeon: Julia Sanderson Hospital Nurse Liaison: [facility] [place] operating room technicians Anesthesia: MAC (With spinal, ASA 3) Estimated blood loss (mL): 1,100 IV fluids (mL): 1,600 (Albumin 500 mL, crystalloid 1100 mL) Urine output (mL): 300 Complications: None Findings: Severe degenerative osteoarthritic change with complete denudement of cartilage. The hip was stable at 90 degrees of flexion with 80 degrees of internal rotation and 20 degrees of abduction. Hip was also stable to external rotation and toe hang. Leg lengths appeared equal at the conclusion of the case. Condition: stable Disposition: PACU (Then to floor for postoperative rehabilitation and pain management) Brief History: This 66-year-old woman presented to me previously in 2018. At that time, she complained of bilateral hip pain. She underwent total hip arthroplasty in April 2018, and she has done very well with this. Last summer, she began to have more significant left hip pain, and at presentation to the clinic, she was 8 of 10 pain. She also had significant limitations in her activities of daily living. Procedure: Patient was brought to the operating theater.? She was transferred to the operating room table and subsequently administered a spinal anesthesia with MAC, ASA 3.? Following administration of adequate anesthesia, the patient was placed in full lateral position and held in position with a pegboard.? The patient's left lower extremity was then prepped and draped in usual fashion utilizing DuraPrep.? It was draped free.? Following prepping and draping a surgical pause was performed.? At the time of surgical pause, we identified the site and side of surgery.? We also identified the patient and preoperative surgical markings.? Confirmation was made of equipment availability.? Additionally, the patient's preoperative IV antibiotic, Ancef 2 g, and TXA administration was confirmed as well. X-rays and the patient's previous operative note were also reviewed. Following the surgical pause, an incision was made centering over the patient's greater trochanter continuing proximally and distally as necessary to allow access to the hip joint.? Dissection continued through skin and soft tissues using a scalpel, and hemostasis was obtained using electrocautery. The tensor fascia refugio was identified and incised longitudinally but there was minimal fascial component to the tensor tissues.? Sciatic nerve was identified and protected throughout the surgical procedure.? A Charnley U retractor was placed after the tensor fascia refugio had been incised longitudinally, and the sciatic nerve had been identified.? The hip was internally rotated, and the piriformis muscle was identified and tagged. Piriformis muscle along with the remaining short external rotators were then incised from the posterior aspect of the hip joint.? These were retracted posteriorly.? The capsule was entered in a T-type fashion with the edges being tagged, and subsequently the hip was dislocated.? Dislocation was quite difficult secondary to the length of the patient's femoral neck.? Additionally, there was very thickened labrum as well.? This was excised.? Following hip dislocation, a femoral neck osteotomy was accomplished in the appropriate position.? This position was difficult to determine appropriate resection level secondary to the long neck length of the patient.? The head was disposed of.? The patient had significant oozing without myra bleeders, and this was felt possibly to be due to some of her rheumatologic medications. We then evaluated the acetabulum. The femur was retracted anteriorly.? Soft tissues were retracted, and the labrum was removed.? We then began reaming.? Once the femoral head was removed, there was noted to be significant loss of cartilage over the head and within the acetabulum.? We reamed to a size 55 to allow for a size 56 acetabular shell.? The acetabulum was impacted into position.? The MDM liner was then impacted into position with care being taken to assure it seated appropriately.? It was noted that the acetabulum matched the bony anatomy.? The cup was noted to seat nicely and had good fixation upon impact. Attention was directed to the proximal femur.? The proximal femur was lifted out of the wound.? A canal finder was passed after the box chisel.? The reamer was used to lateralize.? We then began broaching. We broached sequentially and had excellent fit and fill with the size 6 broach. ? A trial reduction was accomplished with a +0 mm femoral head.? With this in place, we had the above stabilities, and at that time, we felt that we had equal leg lengths.? We also felt that we had excellent stability noted above. Therefore, trial components were removed after the hip was dislocated.? The size 6 Accolade II 132? neck angle stem was impacted into position without difficulty and onto this was placed a +0 mm x 28 mm ceramic femoral head which had been assembled into the MDM insert size 46F.? With a +0 mm femoral head, we had the above-noted stability.? The stem was noted to seat nicely prior to placement of the femoral head.? The wound was copiously irrigated with 20 mL of Betadine and 500 mL of normal saline mixed together.? Subsequently, we suctioned this out and irrigated the wound copiously with lactated Ringer's.? At this time, with all components in appropriate position, the hip was reduced.? Following reduction of the prosthesis once again, we confirmed the stability of the hip.? Leg lengths were also felt to be satisfactory. Being satisfied with the prosthesis, attention was directed to closure.? Closure was accomplished with 0 Vicryl in the capsular tissues.? Piriformis was reattached with 0 Vicryl as well.? Tensor fascia refugio was closed with 0 Vicryl in an interrupted fashion.? The subcutaneous tissues were closed with 2-0 Monocryl.? Vancomycin powder and a Gelfoam thrombin mixture was placed into the wound as well.? The skin was closed with a running 3-0 Monocryl followed by Dermabond Prineo followed by OpSite.? The patient was placed in an abduction pillow.? She was returned the Recovery Room in a satisfactory condition and will be discharged to the floor for postoperative rehabilitation and pain management.? There were no complications or specimens. Related Problem List Diagnoses (1) Primary osteoarthritis of left hip:
[2022-09-20] MEDS: vancomycin 1,000 MG in sodium chloride 0.9% 250 ML 250 MG IV (11:00)
[2022-09-20] MEDS: oxyCODONE 5 mg IR Tab/Cap PO ×3 (11:45→20:09)
--- NOTE | 2022-09-20 17:37 | ANE.PACU2 ---
Inpatient post-anesthesia follow up: Airway intact: Yes Vital signs: Temperature 97.7 F Pulse Rate 88 Respiratory Rate 16 Blood Pressure 102/62 Pulse Oximetry 93 Oxygen Delivery Me thod Nasal Cannula Oxygen Flow Rate 2 Fraction of Inspir ed Oxygen Hydration adequate: Yes Nausea and vomiting: No Pain level: 1 Mental status: Baseline
[2022-09-20] MEDS: mupirocin oint 22 gm 1 APPLIC NASAL (17:45)
[2022-09-20] MEDS: iron polysaccharide complex 150 mg Capsule PO (17:46)
[2022-09-20] MEDS: calcium carbonate 500 mg Chew Tablet 1000 MG PO (17:46)
[2022-09-20] MEDS: CELEcoxib 200 mg Capsule PO (17:46)
[2022-09-20] MEDS: chlorhexidine gluconate 0.12% UDC 15 mL 30 ML MUCOUS MEM ×2 (17:46→20:10)
[2022-09-20] MEDS: sennosides-docusate Tablet 2 TAB PO (17:46)
[2022-09-20] MEDS: ALPRAZolam 0.5 mg Tablet PO (20:09)
[2022-09-21] VITALS (7 sets, daily range): BP systolic 98–107; BP diastolic 58–69; PULSE 82–86; RESP 13–18; TEMP 36.4–36.8; O2SAT 93–96
[2022-09-21] MEDS: oxyCODONE 5 mg IR Tab/Cap PO ×3 (00:22→09:42)
[2022-09-21] MEDS: ceFAZolin 2,000 MG in sodium chloride 0.9% (plus) 50 ML 100 MG IV ×2 (00:23→09:49)
[2022-09-21 04:57] LABS: Basophils % 0.2 %; Eosinophils % 0.2 %; Hematocrit 27.7 % (37.0-47.0); Hemoglobin 8.1 g/dL (11.5-15.3); Lymphocytes # 1.9 10^3/uL (0.8-4.8); Lymphocytes % 23.1 %; Mean Corpuscular HGB Conc 29.2 g/dL (30.0-36.0); Mean Corpuscular Hemoglobin 26.9 pg (28.0-34.0); Mean Platelet Volume 10.6 fL (7.4-10.4); Monocytes % 11.6 %; Neutrophils # 5.31 10^3/uL (1.8-7.7); Neutrophils % 64.7 %; Nucleated Red Blood Cells % 0 %; Platelet Count 265 10^3/cmm (130-400); Red Blood Count 3.01 10^6/uL (4.1-5.3); Red Cell Distribution Width 15.5 % (12.1-15.1); White Blood Count 8.2 10^3/uL (4.0-10.0)
[2022-09-21] MEDS: CELEcoxib 200 mg Capsule PO (05:11)
[2022-09-21 05:14] LABS: Anion Gap 12.3 (5-19); Blood Urea Nitrogen 9 mg/dL (8-23); Calcium 9.1 mg/dL (8.5-10.5); Carbon Dioxide 23 mmol/L (22-29); Chloride 109 mmol/L (98-107); Glomerular Filtration Rate 158.7 mL/min (90-130); Glucose 114 mg/dL (65-115); Osmolality Calculated 290 mOsm/kg (285-295); Potassium 4.3 mmol/L (3.5-5.1); Sodium 140 mmol/L (136-145)
[2022-09-21] MEDS: acetaminophen 1,000 MG/100 ML PIGGYBACK 400 MG IV (05:42)
[2022-09-21] MEDS: calcium carbonate 500 mg Chew Tablet 1000 MG PO (09:40)
[2022-09-21] MEDS: iron polysaccharide complex 150 mg Capsule PO (09:40)
[2022-09-21] MEDS: cholecalciferol (vitamin D3) 1,000 unit Tablet 1000 UNIT PO (09:41)
[2022-09-21] MEDS: multivitamin therapeutic Tablet 1 TAB PO (09:42)
[2022-09-21] MEDS: duloxetine 60 mg Capsule PO (09:42)
[2022-09-21] MEDS: mupirocin oint 22 gm 1 APPLIC NASAL (09:50)
[2022-09-21] MEDS: chlorhexidine gluconate 0.12% UDC 15 mL 30 ML MUCOUS MEM (09:50)
[2022-09-21] MEDS: vancomycin 1,000 MG in sodium chloride 0.9% 250 ML 250 MG IV (12:14)
--- NOTE | 2022-09-21 13:12 | P.DS_ITS ---
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 A size 6 Accolade II 132? neck angle hip stem with a size 28 mm x +0 mm Biolox delta ceramic femoral head and a restorationism MDM X3 insert size 46F Reason for Visit Reason for Visit: Brief History: This 66-year-old woman presented to me previously in 2019.? At that time, she complained of bilateral hip pain.? She underwent total hip arthroplasty in April 2018, and she has done very well with this.? Last summer, she began to have more significant left hip pain, and at presentation to the clinic, she was 8 of 10 pain.? She also had significant limitations in her activities of daily living. Hospital Course Hospital Course This 66-year-old woman was admitted under observation status post total hip arthroplasty. She had undergone total hip arthroplasty on the opposite side and done well. She did well and felt that her leg lengths were equal following this procedure. There is no evidence of DVT. Dressing was dry and intact. On the first postoperative day her pain was well managed and she wished to be discharged home. Physical therapy agreed that she was safe for discharge and therefore she was discharged to home. Physical Exam Const: COMMON NORMALS: no acute distress, average body habitus, patient oriented x3 and alert GENERAL APPEARANCE: cooperative and comfortable ORIENTATION/CONSCIOUSNESS: Yes awake HENMT: COMMON NORMALS: normocephalic and atraumatic HEAD & SCALP: normocephalic and atraumatic Eye: GENERAL EYE: appearance normal, both eyes and all related structures Chest: COMMONS NORMALS: normal inspection of the chest Resp: COMMON NORMALS: normal respiratory effort EFFORT & INSPECTION: Yes able to speak in complete sentences and Yes symmetric chest movement Extremity: LEFT LOWER EXTREMITY: Yes hip joint (Dressing is dry and intact.) Left hip: Yes inspection (No significant ecchymosis, no drainage), Yes palpation (Minimal tenderness to palpation), Yes ROM (Not evaluated) and Yes neurovascular exam (Intact distally) Neuro: COMMON NORMALS: patient oriented x3 SENSORIUM/ORIENTATION: Yes alert Psych: COMMON NORMALS: mental status grossly normal APPEARANCE: Yes grossly normal ATTITUDE: Yes calm and Yes engaged ATTENTION/CONCENTRATION: Yes attention grossly intact Skin: COMMON NORMALS: no rashes or lesions noted GENERAL SKIN EXAM: no rashes or lesions noted Urinary Catheter Management: Orellana: Cath Placed During This Visit: yes, but has since been removed by the nurse Reason for Continuing Indwelling Catheter: Decision to DC Catheter Urinary Catheter Date of Insertion: 09/20/22 Urinary Catheter Time of Insertion: 07:15 Date Urinary Catheter Removed: 09/21/22 Time Urinary Catheter Discontinued: 06:29 Discharge Data Studies Completed and Pending Completed Studies During Hospitalization Category Date Time Status XR pelvis 1-2V* [id number] Routine Exams 09/20/22 10:24 Completed Radiology Impressions Pelvis X-Ray 09/20/22 10:24 IMPRESSION: Total left hip arthroplasty without abnormality. Laboratory Results WBC 8.2 10^3/uL (4.0-10.0) 09/21/22 04:20 RBC 3.01 10^6/uL (4.1-5.3) L 09/21/22 04:20 Hgb 8.1 g/dL (11.5-15.3) L 09/21/22 04:20 Hct 27.7 % (37.0-47.0) L 09/21/22 04:20 MCV 92.0 fl (81-99) 09/21/22 04:20 MCH 26.9 pg (28.0-34.0) L 09/21/22 04:20 MCHC 29.2 g/dL (30.0-36.0) L 09/21/22 04:20 RDW 15.5 % (12.1-15.1) H 09/21/22 04:20 Plt Count 265 10^3/cmm (130-400) 09/21/22 04:20 MPV 10.6 fL (7.4-10.4) H 09/21/22 04:20 Neut % (Auto) 64.7 % 09/21/22 04:20 Lymph % (Auto) 23.1 % 09/21/22 04:20 [place] % (Auto) 11.6 % 09/21/22 04:20 Eos % (Auto) 0.2 % 09/21/22 04:20 Baso % (Auto) 0.2 % 09/21/22 04:20 Neut # (Auto) 5.31 10^3/uL (1.8-7.7) 09/21/22 04:20 Lymph # (Auto) 1.9 10^3/uL (0.8-4.8) 09/21/22 04:20 [place] # (Auto) 1.0 10^3/uL (0.2-0.9) H 09/21/22 04:20 Eos # (Auto) 0.0 10^3/uL (0.0-0.8) 09/21/22 04:20 Baso # (Auto) 0.0 10^3/uL (0.0-0.1) 09/21/22 04:20 Nucleated RBC % (auto) 0 % 09/21/22 04:20 Nucleated RBCs # 0.0 /100WBC 09/21/22 04:20 Sodium 140 mmol/L (136-145) 09/21/22 04:20 Potassium 4.3 mmol/L (3.5-5.1) 09/21/22 04:20 Chloride 109 mmol/L (98-107) H 09/21/22 04:20 Carbon Dioxide 23 mmol/L (22-29) 09/21/22 04:20 Anion Gap 12.3 (5-19) 09/21/22 04:20 BUN 9 mg/dL (8-23) 09/21/22 04:20 Creatinine 0.4 mg/dL (0.5-0.9) L 09/21/22 04:20 GFR Calculation 158.7 mL/min (90-130) H 09/21/22 04:20 Glucose 114 mg/dL (65-115) 09/21/22 04:20 Calculated Osmolality 290 mOsm/kg (285-295) 09/21/22 04:20 Calcium 9.1 mg/dL (8.5-10.5) 09/21/22 04:20 Blood Type O Positive 09/20/22 09:43 Rho(D) Type Positive 09/20/22 09:43 Antibody Screen Negative 09/20/22 09:43 Vitals Last Vital Signs Temp 98.3 F 09/21/22 11:14 Pulse 86 09/21/22 11:14 Resp 16 09/21/22 11:14 BP 107/69 09/21/22 11:14 Pulse Ox 93 09/21/22 11:14 O2 Del Method Room Air 09/21/22 11:14 O2 Flow Rate 2 09/21/22 03:23 Discharge Plan Discharge Patient Disposition: Home Health Service Condition: Stable Prescriptions: New oxycodone 5 mg tablet 5 mg PO Q4H PRN (Reason: Pain, Moderate) 7 Days Qty: 30 0RF enoxaparin 40 mg/0.4 mL syringe 40 mg SUBCUT DAILY 14 Days Qty: 5.6 0RF Rx Instructions: 14 syringes at 0.4 mils Continued duloxetine 60 mg capsule,delayed release(DR/EC) 60 mg PO DAILY Entyvio 300 mg recon soln 300 mg IV .EVERY 8 WEEKS Qty: 1 12RF alprazolam 0.5 mg tablet 0.5 mg PO BEDTIME Qty: 30 3RF Benadryl Allergy 25 mg pe PO PRN mesalamine 1.2 gram tablet,delayed release (DR/EC) 1.2 g PO DAILY Discharge Orders: Discharge Order (Routine); Ordered 09/21/22 Ordered By: Julia Sanderson Referrals: [facility] ([facility]) [Outside] Julia Sanderson MD [Physician] - 10/04/22 10:30 am Discharge Diet: Advance as tolerated and Usual diet Discharge Activity: Resume usual activity, Increase activity as tolerated, Limit activity as instructed, Use walker/crutches as instructed and As per PT/OT instructions Patient Instructions: Oxycodone/Acetaminophen (By mouth), Enoxaparin (By injection), Total Hip Replacement (GEN), Opioid Safety Activity Restrictions/Additional Instructions: Home physical therapy for strengthening and ambulation. Posterior hip precautions as you have been instructed. Maintain current dressing until it comes off on its own. Discharge Attestations Time Spent in Discharge Care*: greater than 30 min Specific Discharge Activities: educating patient, documenting/other paperwork and evaluating patient/reviewing data Quality Metrics Clinical Quality Measures [ No reported AMI, CVA or VTE this stay] Coding Level of Care Code Acute Code for Chg Fwd Diagnoses Primary osteoarthritis of left hip M16.12 Status post total hip replacement, left Z96.642
== END 2022-09-21 15:14 | disposition home health service (06) ==
LOC: MEDSURG 10:32
PROVIDERS: Admitting Provider Specialist; PCP Internal Medicine; Visit Provider Specialist
PROC: (CPT 27130; principal; 2022-09-20 07:00)
DX: M16.12 Unilateral primary osteoarthritis, left hip (principal); J44.9 Chronic obstructive pulmonary disease, unspecified; Z87.891 Personal history of nicotine dependence
CPT/HCPCS: 27130; 36415; 51702; 72170; 80048; 85025; 86850; 86900; 97116; 97161; 97165; 97530; C1776; G0378; J0131; J0690; J1100; J2250; J2370; J2405; J2704; J3010; J3370; J7050; P9045

== ENCOUNTER → 2022-10-04 10:43 | Outpatient (BNVA) | payer MEDICARE, OTHER, SELFPAY | PROVIDERS: PCP Internal Medicine; Visit Provider Nurse Practitioner Family | DX: Z96.642 Presence of left artificial hip joint (principal) | CPT/HCPCS: 73502; 99024 ==

== ENCOUNTER 2022-10-07 11:35 | Observation (INO) | payer MEDICARE, OTHER, SELFPAY ==
[2022-10-07] VITALS (30 sets, daily range): BP systolic 95–149; BP diastolic 57–91; PULSE 67–116; RESP 15–18; TEMP 36.1–36.7; O2SAT 93–100; BMI 25.0
--- NOTE | 2022-10-07 11:39 | XR_ITS ---
WS: [id number] Exam: XR hip LT 2-3V wo/w pel* [id number] Date/Time of Exam: 10/07/2022 1:02 PM Reason For Exam: dislocation S/P arthroplasty Comparison 10/04/2022. There is superior lateral dislocation involving the femoral component of the total hip prosthesis. No fracture noted. XR/XR hip LT 2-3V wo/w pel* [id number] IMPRESSION: 1. Dislocated left hip prosthesis.
--- NOTE | 2022-10-07 11:46 | ED_ITS ---
HPI - Extremity Problem General: Chief complaint: Extremity Injury, Lower Stated complaint: hip dislocation post hip surgery Time Seen by Provider: 10/07/22 11:37 Source: patient Mode of arrival: ambulatory History of Present Illness: 67-year-old female presents emergency room via EMS. On the of this month she had a left hip arthroplasty everything was going well this morning she was trying to get out of bed and as she was doing so she felt a sharp popping sensation in her left hip and had severe pain she is not able to bear weight or even move. No other injury. She reports that time she was rolling over in bed. She is on Lovenox at this time for DVT prophylaxis. She was given 200 mcg of fentanyl in route. MD Complaint: joint pain Onset (ago): minute(s) Pain Consistency: constant Location: left (hip) Quality: sharp Radiation: distal Relieving factors: immobilization Exacerbating factors: range of motion and palpation Associated symptoms: Deny arthralgias, chest pain, fever(s), myalgias, rash or short of breath Review of Systems Const: Denies: fever(s), chills, fatigue or malaise Card: Denies: chest pain, palpitations or edema Resp: Denies: dyspnea, productive cough or non-productive cough GI: Reports: nausea; Denies: abdominal pain or vomiting : Denies: flank pain, difficulty voiding, dysuria, urinary frequency or urinary urgency Skin/Breast: Reports: pruritus; Denies: rash [facility] ED PFSH: Medical History Chronic diarrhea COPD (chronic obstructive pulmonary disease) Generalized anxiety disorder History of nonmelanoma skin cancer Infliximab (Remicade) long-term use Primary osteoarthritis Tobacco abuse Surgical History History of appendectomy History of back surgery History of cholecystectomy History of colonoscopy Family History Other Cancer Hypertension Social History Smoking and tobacco status: former smoker Household members: significant other Marital status: Current gender identity: Female Physical Exam Const: GENERAL APPEARANCE: cooperative ORIENTATION/CONSCIOUSNESS: Yes awake, Yes oriented to person, Yes oriented to place and Yes oriented to time HENMT: COMMON NORMALS: normocephalic, atraumatic and hearing grossly normal bilaterally HEAD & SCALP: normocephalic and atraumatic Resp: COMMON NORMALS: normal respiratory effort, No retractions, No use of accessory muscles and clear to auscultation bilaterally AUSCULTATION: clear to auscultation bilaterally Cardio: COMMON NORMALS: regular rate, regular rhythm and No murmurs present (C ardio) RATE: regular rate RHYTHM: regular rhythm GI: COMMON NORMALS: Soft to palpation and No hepatosplenomegaly present AUSCULTATION: Yes normoactive bowel sounds PALPATION: Yes Soft to palpation, No Tenderness to palpation present (GI), No Guarding due to palpation present (GI) and Yes No hepatosplenomegaly present Extremity: COMMON NORMALS: capillary refill normal, no clubbing, cyanosis or edema, no calf tenderness and no pedal edema OTHER: Obvious deformity of the left hip with shortening of the left leg and deformity with severe pain at the left hip itself. Mild external rotation neurovascularly intact. Neuro: SENSORIUM/ORIENTATION: Yes oriented to person, Yes oriented to place and Yes oriented to time Skin: COMMON NORMALS: no rashes or lesions noted GENERAL SKIN EXAM: no rashes or lesions noted Procedures Orthopedic Joint Reduction Joint #1: Time Out Performed: Yes Side: left Joint Reduction Location: hip Analgesia: procedural sedation Technique used: traction/counter-traction Post-reduction vascular: intact Additional Comments: Titrated procedural sedation unable to get patient to relax enough to reduce. Multiple attempts made. We did contact Dr. Levin who is on-call he came to the ER and attempted to reduce as well was unable to reduce and recommended that the patient go to surgery for full anesthesia. Procedural Sedation Indication: fracture/dislocation reduction ASA Class: I Preparation: property assessment monitor applied, pulse oximeter, capnometry used, supplemental O2 applied, suction/airway equipment at bedside and IV secured Fentanyl: IV (200 mcg titrated) Midazolam: IV (Titrated up to 8 mg) Midazolam dose (mg): 8 Patient Tolerated Procedure: well Complications: none Interventions: oxygen applied Course Vital Signs: Vital signs: Vital Signs Temperature 97.7 F 10/09/22 11:23 Pulse Rate 88 10/09/22 11:23 Respiratory Rate 18 10/09/22 11:23 Blood Pressure 112/68 10/09/22 11:23 Pulse Oximetry 93 10/09/22 11:23 Oxygen Delivery Me thod Nasal Cannula 10/09/22 11:23 Oxygen Flow Rate 3 10/08/22 20:00 MDM - Extremity (Nontraumatic) Medical Decision Making Left hip dislocation of left hip arthroplasty. Attempted reduction under procedural sedation unable to reduce Dr. Neely not able to reduce either. Dr. Calle who did the patient's hip arthroplasty will take the patient to the OR for attempted reduction under full anesthesia. Medical Records I reviewed the patient's medical records. Lab Data I reviewed the patient's lab results. 10/09/22 08:00 10/08/22 05:14 Radiology Impressions Hip/Pelvis X-Ray 10/07/22 11:39 IMPRESSION: 1. Dislocated left hip prosthesis. Pelvis X-Ray 10/07/22 16:57 IMPRESSION: 1. Status post left hip arthroplasty. Interval closed reduction of the left hip dislocation. 2. Incidental/nonacute findings are listed in the report. Discharge Plan Discharge Patient Disposition: Admitted As Inpatient Admit Provider: Julia Sanderson Clinical Impression: Failure of left total hip arthroplasty with dislocation of hip, Status post total hip replacement, left Condition: Stable Discharge Diet: Advance as tolerated and Usual diet Discharge Activity: Increase activity as tolerated, Limit activity as instructed, Use walker/crutches as instructed and As per PT/OT instructions Coding Level of Care Code ED [employer] Representative for Becky Ramirez
[2022-10-07] MEDS: HYDROmorphone 1 mg/mL INJ 1 mL IVP (11:51)
[2022-10-07] MEDS: ondansetron 2 mg/ML SDV 2 mL 4 MG IVP (11:54)
[2022-10-07] MEDS: fentaNYL 50 mcg/mL INJ 2mL 100 MCG IVP ×2 (12:05→12:20)
[2022-10-07] MEDS: midazolam 1 mg/mL INJ 2 mL 6 MG IVP (12:05)
[2022-10-07] MEDS: midazolam 1 mg/mL INJ 2 mL 2 MG IVP (12:30)
[2022-10-07] MEDS: fentaNYL 50 mcg/mL INJ 2mL IVP ×3 (12:56→17:11)
--- NOTE | 2022-10-07 13:17 | ANES.PAUD2 ---
Pre-Anesthetic Update Pre-Anesthetic Assessment: Date of Surgery/Procedure: 10/07/22 Proposed Procedure: Operation Date: 10/07/22 13:15 Proposed Procedures p Closed Reduction Hip(Left) - Julia Sanderson MD Any changes to Pre-Anesthetic Assessment?: No Last Intake: > 8 hrs Vitals: Temperature 97.2 F L 10/07/22 13:16 Temperature Source Temporal Artery S can 10/07/22 13:16 Pulse Rate 95 10/07/22 13:16 Respiratory Rate 18 10/07/22 13:16 Respiratory Effort Spontaneous, Non- Labored 10/07/22 11:37 Respiratory Depth Normal 10/07/22 11:37 Blood Pressure 137/91 10/07/22 13:16 Blood Pressure Gabby n 106 10/07/22 13:16 Pulse Oximetry 97 10/07/22 13:16 Oxygen Delivery Me thod Nasal Cannula 10/07/22 13:16 Oxygen Flow Rate 8 10/07/22 13:16 Exam: Pre-Anes Outpt Exam: alert, oriented x 3, clear to auscultation bilaterally and regular rate & rhythm Other Pertinent Information: Other Pertinent Information: Hip has become dislocated Cardiac Studies: Sestamibi Stress Test (Cardiology) 06/03/22
[2022-10-07] MEDS: sodium chloride 0.9% 1,000 ML 30 ML IV (13:21)
--- NOTE | 2022-10-07 13:34 | P.HP_ITS ---
Same Day Surgery H&P Indication for Procedure/HPI DATE OF PROCEDURE: October 07, 2022 CHIEF COMPLAINT/INDICATIONFOR SURGICAL PROCEDURE: Left hip dislocation following total hip arthroplasty PREOP DIAGNOSIS: Left total hip dislocation PLANNED PROCEDURE: Operation Date: 10/07/22 13:15 Proposed Procedures p Closed Reduction Hip(Left) - Julia Sanderson MD Possible open reduction This 67-year-old woman underwent left total hip arthroplasty earlier this month on September 20. She was doing very well, but this morning, when she attempted to roll over in bed, she reached to hold a pillow out and felt a pop. She was brought to the emergency department by EMS and diagnosed with a hip dislocation. Attempted reduction under sedation was tried in the emergency department, but this was unsuccessful. Therefore, the patient was scheduled to be brought to the operating room for full general anesthetic with paralyzation in hopes of be ing able to close reduce the hip. The patient understands that she will need to undergo open reduction if we are unable to get it reduced. Medications/Allergies* Home Medications Medication Instructions Recorded Confirmed Type Benadryl Allergy 25 mg pe PO PRN 12/15/20 10/07/22 History duloxetine 60 mg capsule,delayed 60 mg PO DAILY 06/15/22 10/07/22 History release oxycodone 5 mg tablet 5 mg PO Q4H PRN Pain 10/07/22 10/07/22 History Allergies/Adverse Reactions Allergy/AdvReac Type Severity Reaction Status Date / Time codeine Allergy Unknown Verified 10/07/22 11:44 infliximab [From Remicade] Allergy ALGY-Hives Verified 10/07/22 11:44 Current Medications: Generic Name Dose Route Start Last Admin Trade Name Freq PRN Reason Stop Dose Admin Sodium Chloride 1,000 mls @ 30 mls/hr 10/07/22 13:15 10/07/22 13:21 Sodium Chloride 0.9% IV 10/08/22 13:14 30 mls/hr .Q24H TABATHA Administration Pertinent History/Comorbid Conditions* Medical History (Updated 09/13/22 @ 10:35 by Dante Nuñez NP) Chronic diarrhea COPD (chronic obstructive pulmonary disease) Generalized anxiety disorder History of nonmelanoma skin cancer Infliximab (Remicade) long-term use Primary osteoarthritis Tobacco abuse Surgical History (Updated 09/22/22 @ 18:44 by Julia Sanderson MD) History of appendectomy History of back surgery History of cholecystectomy History of colonoscopy Family History (Updated 05/28/19 @ 16:59 by Vivian Law LPN) Cancer Hypertension Social History Smoking and tobacco status: former smoker Household members: significant other Marital status: Current gender identity: Female Pertinent Exam Findings alert, oriented x 3, clear to auscultation bilaterally, regular rate & rhythm, operative site marked and procedure specific exam findings (Left lower extremity shortened and externally rotated relative to the right) Related Problem List Diagnoses (1) Dislocation of hip joint prosthesis: Recommendations Surgery/Procedure today Coding Level of Care Code Acute Code for Chg Fwd Diagnoses Dislocation of hip joint prosthesis T84.029A; Z96.649
--- NOTE | 2022-10-07 14:49 | SUR.OPER ---
6202 Dr Sanderson decided to open the hip
[2022-10-07] MEDS: ceFAZolin 2,000 MG in sodium chloride 0.9% (plus) 50 ML 100 MG IV ×2 (14:50→22:21)
--- NOTE | 2022-10-07 14:57 | SUR.OPER ---
1454 pt repositioned, prepped, draped and surgery started.
[2022-10-07] MEDS: vancomycin 1,000 MG SDV 1000 MG IRRIGATION (15:38)
[2022-10-07] MEDS: ceFAZolin 1,000 mg SDV 1000 MG IRRIGATION (15:39)
--- NOTE | 2022-10-07 16:33 | P.OP_ITS ---
Operative Report Date of procedure: October 07, 2022 Pre-op diagnosis: Left hip dislocation following total hip arthroplasty with dissociation of the MDM head component from the ceramic femoral head Post-op diagnosis: Left hip dislocation following total hip arthroplasty with dissociation of the MDM head component from the ceramic femoral head Post-op findings: Attempted closed reduction was accomplished. I was able to reduce the ceramic head into the acetabulum, however, and the event of the dislocation, the MDM insert was dissociated from the ceramic femoral head. Procedure done: Attempted closed reduction followed by open reduction left total hip arthroplasty with replacement of femoral head and MDM insert. Implants: Franklin total hip system with replacement of the 28 x 46 F MDM insert and the Biolox delta ceramic femoral head size 28 mm outer diameter with a +4 mm offset. Specimens removed/disposition: Initial ceramic head and MDM liner Pathology: none sent Surgeon: Julia Sanderson Field Representative: [facility] operating room technicians Anesthesia: General (Intubated, ASA 2E) Estimated blood loss (mL): 300 IV fluids (mL): 1,200 Urine output (mL): 0 (No Orellana) Complications: None Findings: At the time of opening the hip, the plastic MDM insert was posterior to the hip joint. The femoral head, ceramic, was relocated within the acetabular liner. Attempted closed reduction resulted in mosque of leg lengths with grinding secondary to the MDM insert dissociation from the femoral head. Condition: stable Disposition: PACU (Then to floor for postoperative rehabilitation and pain management) Brief History: This 67-year-old woman underwent left total hip arthroplasty on September 20, 2022. Previously, she had had hip replacement in 2019 to the opposite hip. The patient presented to the emergency department today by ambulance in severe pain after suffering a hip dislocation while at home. The patient was in bed and describes perhaps trying to get some covers out from under her. She had immediate onset of excruciating pain and was brought to the emergency department. Attempted closed reduction was accomplished in the emergency department unsuccessfully. Therefore, the patient was brought to the operating room. Fluoroscopy was utilized in the operating room for the attempted closed reduction. Prior to the surgical procedure, the patient had signed consents in the emergency department for closed reduction. I discussed in the preop area close reduction with possible need for open reduction. The patient was in agreement. She had been sedated and verbal consent was obtained from her significant other who was at home as well as her previous consent in the emergency department. As this was felt to be emergent, we proceeded with the reduction. Procedure: Patient was brought into the operating theater and transferred to the operating room table after a general anesthesia was administered. This was intubated, ASA 2E. A surgical pause was performed. Verification of appropriate equipment was accomplished. Following failed close reduction, the patient was administered IV antibiotic 2 g of Ancef. To facilitate closed reduction, the patient was given a paralyzation agent. I was able to use fluoroscopy and feel the hip reduced. After reduction, although leg lengths were equal and the foot was in a better position, evaluation of x-ray images demonstrated that the femoral head sat higher in the acetabulum than it should and it was not centralized. Additionally, with motion, there is a grinding in the acetabulum throughout the leg. Therefore, it was felt that there was likely a dissociation of the MDM insert from the femoral head and plans were made for converting to open reduction with revision of the femoral head and MDM insert. Patient was placed subsequently onto a regular operating room table and held in place in a full lateral position with the pegboard. The left lower extremity was prepped and draped in usual fashion utilizing DuraPrep. The leg was draped free. Following prepping and draping, the previous incision was entered with a scalpel and dissection continued through skin and soft tissues with a scalpel. Hemostasis was obtained with electrocautery. There was noted to be serosanguineous fluid within the area of dislocation, but there was no evidence of purulence or other fluid of concern. With palpation, I was able to feel and remove the MDM liner from outside of the hip joint. Inspection demonstrated that the femoral head was indeed relocated with an the cup, but again it was without the MDM insert. The wound was copiously irrigated. A trial reduction was accomplished with a +4 mm femoral head where previously she had had a +0. This was felt to possibly give her better stability. Being satisfied with the construct, these components were brought onto the table. Confirmation was made at this time and throughout the case that the liner and insert and femoral head and acetabular size all mat ched. Looking at all notes available including nursing notes from the previous surgical procedure, my dictated operative note, and the dermatology sales representative's notes and stickers, all was as appropriate. As noted, the wound was irrigated. The femoral head was assembled on the back table. Care was taken to assure that it was completely impacted as per normal practice. The small femoral head was mobile within the MDM insert. Therefore, this was impacted into position on the femoral stem. It was then pulled upon to confirm there was no instability in the construct. The hip was then relocated and attention was directed to closure. Closure was accomplished with 0 Vicryl in the capsular tissues.? Piriformis was reattached with 0 Vicryl as well.? Both the piriformis and capsular tissues were noted to be somewhat inflamed secondary to the patient's recent surgery. Tensor fascia refugio was closed with 0 Vicryl in an interrupted fashion.? The subcutaneous tissues were closed with 2-0 Monocryl.? Vancomycin powder and a Gelfoam thrombin mixture was placed into the wound as well.? The skin was closed with a running 3-0 Monocryl followed by Dermabond Prineo followed by OpSite.? The patient was placed in an abduction pillow and knee immobilizer.? She was returned the Recovery Room in a satisfactory condition and will be discharged to the floor for postoperative rehabilitation and pain management.? There were no complications or specimens. Related Problem List Diagnoses (1) Dislocation of hip joint prosthesis: (2) Status post total hip replacement, left:
--- NOTE | 2022-10-07 16:57 | XRR_ITS ---
PROCEDURE INFORMATION: Exam: XR Pelvis Exam date and time: 10/07/2022 5:06 PM Age: 67 years old Clinical indication: Injury or trauma; Fall; Other: Post open reduction; Additional info: Status post open reduction with component exchange, low ap pelvis TECHNIQUE: Imaging protocol: Radiologic exam of the pelvis. Views: 1 or 2 view. COMPARISON: CR XR hip LT 2-3V wo/w pel* [id number] 10/07/2022 11:47 AM FINDINGS: Bones/joints: Status post left hip arthroplasty. Interval closed reduction of the left hip dislocation. The patient has had a previous right hip arthroplasty. No acute fracture. No dislocation. Normal bone mineralization. Soft tissues: No soft tissue swelling. No radiopaque foreign body. Left-sided soft tissue emphysema, likely due to recent surgery. XR/XR pelvis 1-2V* [id number] IMPRESSION: 1. Status post left hip arthroplasty. Interval closed reduction of the left hip dislocation. 2. Incidental/nonacute findings are listed in the report.
--- NOTE | 2022-10-07 17:36 | PC.NURSE ---
Patient arrived to [facility].
[2022-10-07] MEDS: calcium carbonate 500 mg Chew Tablet 1000 MG PO (18:23)
[2022-10-07] MEDS: acetaminophen 1,000 MG/100 ML PIGGYBACK 400 MG IV (18:24)
[2022-10-07] MEDS: mupirocin oint 22 gm 1 APPLIC NASAL (18:24)
[2022-10-07] MEDS: sennosides-docusate Tablet 2 TAB PO (18:24)
[2022-10-07] MEDS: chlorhexidine gluconate 0.12% Btl 473 mL 30 ML MUCOUS MEM ×2 (18:24→20:59)
[2022-10-07] MEDS: iron polysaccharide complex 150 mg Capsule PO (18:24)
[2022-10-07] MEDS: oxyCODONE 5 mg IR Tab/Cap PO ×2 (18:34→22:29)
--- NOTE | 2022-10-07 19:15 | ANE.PACU2 ---
Inpatient post-anesthesia follow up: Airway intact: Yes Vital signs: Temperature 98.6 F Pulse Rate 92 Respiratory Rate 18 Blood Pressure 100/67 Pulse Oximetry 93 Oxygen Delivery Me thod Room Air Oxygen Flow Rate 3 Fraction of Inspir ed Oxygen Hydration adequate: Yes Pain level: 1 Mental status: Baseline
[2022-10-07] MEDS: ALPRAZolam 0.5 mg Tablet PO (20:59)
[2022-10-08] VITALS (22 sets, daily range): BP systolic 88–126; BP diastolic 52–76; PULSE 83–108; RESP 16–20; TEMP 36.4–37.9; O2SAT 90–96
[2022-10-08] MEDS: acetaminophen 1,000 MG/100 ML PIGGYBACK 400 MG IV ×2 (02:08→10:47)
[2022-10-08] MEDS: oxyCODONE 5 mg IR Tab/Cap PO ×4 (02:11→23:41)
[2022-10-08 05:26] LABS: Basophils # 0.1 10^3/uL (0.0-0.1); Basophils % 0.5 %; Eosinophils # 0.1 10^3/uL (0.0-0.8); Eosinophils % 1.4 %; Hematocrit 26.3 % (37.0-47.0); Hemoglobin 7.6 g/dL (11.5-15.3); Lymphocytes % 21.7 %; Mean Corpuscular HGB Conc 28.9 g/dL (30.0-36.0); Mean Corpuscular Hemoglobin 24.8 pg (28.0-34.0); Mean Corpuscular Volume 85.9 fl (81-99); Mean Platelet Volume 9.5 fL (7.4-10.4); Monocytes # 0.7 10^3/uL (0.2-0.9); Monocytes % 7.8 %; Neutrophils # 6.36 10^3/uL (1.8-7.7); Neutrophils % 68.3 %; Nucleated Red Blood Cells % 0 %; Platelet Count 409 10^3/cmm (130-400); Red Blood Count 3.06 10^6/uL (4.1-5.3); Red Cell Distribution Width 15.6 % (12.1-15.1); White Blood Count 9.3 10^3/uL (4.0-10.0)
[2022-10-08 05:43] LABS: Anion Gap 16.1 (5-19); Blood Urea Nitrogen 9 mg/dL (8-23); Carbon Dioxide 23 mmol/L (22-29); Chloride 109 mmol/L (98-107); Glomerular Filtration Rate 122.3 mL/min (90-130); Glucose 124 mg/dL (65-115); Osmolality Calculated 296 mOsm/kg (285-295); Potassium 5.1 mmol/L (3.5-5.1); Sodium 143 mmol/L (136-145)
[2022-10-08] MEDS: ceFAZolin 2,000 MG in sodium chloride 0.9% (plus) 50 ML 100 MG IV ×2 (05:46→13:14)
[2022-10-08] MEDS: enoxaparin 40 mg/0.4 mL Syringe SUBCUT (05:46)
[2022-10-08 07:43] LABS: Hematocrit 27.8 % (37.0-47.0); Hemoglobin 7.9 g/dL (11.5-15.3)
--- NOTE | 2022-10-08 07:53 | PM.PN ---
Subjective Subjective: Patient seen and examined this morning. Overall she is doing well she is a little pale but does not complain of lightheadedness. She is up sitting up and eating breakfast. No acute issues overnight. Will work with therapy today after discussion with patient likely discharge home tomorrow as we will monitor her hemoglobin and see how she does with therapy Vitals/I&O/Wt Last Vital Signs Temp 98.6 F 10/08/22 07:34 Pulse 83 10/08/22 07:34 Resp 16 10/08/22 07:34 BP 100/64 10/08/22 07:34 Pulse Ox 93 10/08/22 07:34 O2 Del Method Nasal Cannula 10/08/22 07:34 O2 Flow Rate 2 10/08/22 07:30 10/07/22 10/08/22 10/08/22 22:59 06:59 14:59 Intake Total 2590 / 2590 320 / 2910 Output Total 300 / 300 Balance 2290 / 2290 320 / 2610 Weight last 48 hrs Weight 160 lb Physical Exam Narrative: Examination of the left hip: Examination of the left hip demonstrates dressings on in place is clean dry and intact no signs of erythema or infection around normal postoperative swelling and ecchymosis appreciated she has mild tenderness palpation over hip, knee immobilizer in place she is able to wiggle toes plantarflex and dorsiflex ankle distal pulses are palpable left lower extremity is warm well perfused compartments are soft and compressible sensations intact to light touch distally. Data 10/08/22 07:36 10/08/22 05:14 A&P Assessment and plan (1) Dislocation of hip joint prosthesis: (2) Status post total hip replacement, left: Plan Patient is postoperative day 1 from a open reduction left total hip arthroplasty after over 2 weeks out she sustained a dislocation attempts at closed reduction were performed and it was found that patient had disassociation of the femoral head component at this point time she underwent open reduction yesterday with my partner Dr. Sanderson. Today she is doing well her initial hemoglobin checked this morning was 7.6 with a recheck of 7.9. She looks slightly pale this morning and her blood pressure is stable but on the lower side. At this point time she has not worked with therapy she through shared decision making would like to work with therapy and monitor her for another day as she is uneasy on going home on her own yet as she has minimal mobility on her own. She will work with therapy today we will recheck her hemoglobin tomorrow and possibly discharge home tomorrow depending on how well she is doing. Patient understands and agrees with current plan. All questions answered. Posterior hip precautions Weight-bear as tolerated left lower extremity Pain control Lovenox DVT prophylaxis Dressing change as needed if saturated Follow-up with Dr. Sanderson 2 weeks postop Orthopedics to continue to monitor A.m. labs reviewed we will recheck hemoglobin tomorrow Attestations Medical Necessity Statement*: Ongoing postoperative care dislocation left periprosthetic hip Coding Level of Care Code Acute Code for Chg Fwd Diagnoses Dislocation of hip joint prosthesis T84.029A; Z96.649 Status post total hip replacement, left Z96.642 Time Spent (min) 20
[2022-10-08] MEDS: multivitamin therapeutic Tablet 1 TAB PO (08:42)
[2022-10-08] MEDS: calcium carbonate 500 mg Chew Tablet 1000 MG PO ×2 (08:42→17:22)
[2022-10-08] MEDS: duloxetine 60 mg Capsule PO (08:42)
[2022-10-08] MEDS: iron polysaccharide complex 150 mg Capsule PO ×2 (08:42→17:22)
[2022-10-08] MEDS: cholecalciferol (vitamin D3) 1,000 unit Tablet 1000 UNIT PO (08:42)
[2022-10-08] MEDS: mupirocin oint 22 gm 1 APPLIC NASAL ×2 (08:43→17:22)
[2022-10-08] MEDS: chlorhexidine gluconate 0.12% Btl 473 mL 30 ML MUCOUS MEM ×4 (08:43→20:10)
--- NOTE | 2022-10-08 11:28 | PC.NURSE ---
Patient manual BP is 98/60, this nurse notified Dr. Neely. New verbal telephone orders received.
[2022-10-08] MEDS: sodium chloride 0.9% 500 ML IV (11:38)
--- NOTE | 2022-10-08 12:53 | PC.NURSE ---
This nurse rechecked patients BP. Reading was 88/52 and a HR of 105. Patient is asymptomatic. Dr. Neely notified. New orders received and consulting medicine.
--- NOTE | 2022-10-08 13:03 | P.MISC_ITS ---
Miscellaneous Note Purpose of Documentation: Orthopedic note update: Patient is postoperative day 1 from an open reduction of a left periprosthetic hip dislocation by Dr. Sanderson. I was paged by nurse that patient was hypotensive. Otherwise was stable and not complaining of any symptoms as result I had the nurse give 500 mL bolus and recheck vitals recheck of vitals still showed slightly lower pressures and response tachycardia. Reviewing her medications does not appear as though she is on any blood pressure lowering medications. We will have him recheck another hemoglobin. I did call and consult and speak with Dr. Payton who agreed to be consulted on board to help us with medical management. Appreciate Dr. Payton for assisting us with management of this patient. Will defer to him for blood pressure management and resumption of home medications. Orthopedics will continue to be primary. Goals of hopef ully discharging tomorrow if patient vital signs are stable and she is progressed well with therapy. Macario Neely, DO/orthopedic surgery
--- NOTE | 2022-10-08 13:31 | P.CONIM_ITS ---
Providers/Reason For Consult Attending Physician: Julia Sanderson MD Primary Care Provider: Rizwan French MD History of Present Illness History of Present Illness Valentine Jones is a 67 year old female Medications/Allergies Home Medications Medication Instructions Recorded Confirmed Last Taken Type Benadryl Allergy 25 mg pe PO PRN 12/15/20 10/07/22 09/08/22 History vedolizumab 300 mg intravenous 300 mg IV .EVERY 8 WEEKS #1 ea 11/30/21 10/07/22 09/06/22 Rx solution (Entyvio) alprazolam 0.5 mg tablet 0.5 mg PO BEDTIME #30 tabs 01/31/22 10/07/22 09/19/22 Rx duloxetine 60 mg capsule,delayed 60 mg PO DAILY 06/15/22 10/07/22 09/19/22 History release enoxaparin 40 mg/0.4 mL 40 mg (0.4 mL) SUBCUT DAILY 14 10/07/22 Unknown Rx subcutaneous syringe (Lovenox) days #56 mL oxycodone 5 mg tablet 5 mg PO Q4H PRN Pain 10/07/22 10/07/22 Unknown History oxycodone 5 mg tablet 5 mg PO Q4H PRN pain 7 days #30 10/07/22 Unknown Rx tabs Allergies Allergy/AdvReac Type Severity Reaction Status Date / Time codeine Allergy Unknown Verified 10/07/22 11:44 infliximab [From Remicade] Allergy ALGY-Hives Verified 10/07/22 11:44 Current Medications Generic Name Dose Route Start Last Admin Trade Name Freq PRN Reason Stop Dose Admin Alprazolam 0.5 mg 10/07/22 21:00 10/07/22 20:59 Alprazolam 0.5 Mg Tablet PO 0.5 mg BEDTIME TBAATHA Administration Calcium Carbonate 1,000 mg 10/07/22 18:00 10/08/22 08:42 Calcium Carbonate 500 Mg Chew Tablet PO 1,000 mg BID TABATHA Administration Chlorhexidine Gluconate 30 ml 10/07/22 17:47 10/08/22 13:15 Chlorhexidine Gluconate 0.12% Btl 473 Ml MUCOUS MEM 30 ml QID TABATHA Administration Duloxetine HCl 60 mg 10/08/22 09:00 10/08/22 08:42 Duloxetine 60 Mg Capsule PO 60 mg DAILY TABATHA Administration Enoxaparin Sodium 40 mg 10/08/22 05:00 10/08/22 05:46 Enoxaparin 40 Mg/0.4 Ml Syringe SUBCUT 40 mg Q24H TABATHA Administration Cefazolin Sodium 2,000 mg/ 50 mls @ 100 mls/hr 10/07/22 22:30 10/08/22 13:14 Sodium Chloride IV 10/08/22 14:59 100 mls/hr Q8H TABATHA Administration Protocol Multivitamins Therapeutic 1 tab 10/08/22 09:00 10/08/22 08:42 Multivitamin Therapeutic Tablet PO 1 tab DAILY TABATHA Administration Mupirocin 1 applic 10/07/22 18:00 10/08/22 08:43 Mupirocin Oint 22 Gm NASAL 10/12/22 17:59 1 applic BID TABATHA Administration Oxycodone HCl 5 mg 10/07/22 17:47 10/08/22 10:51 Oxycodone 5 Mg Ir Tab/Cap PO 5 mg Q4H PRN Administration MODERATE PAIN Polysaccharide Iron Complex 150 mg 10/07/22 18:00 10/08/22 08:42 Iron Polysaccharide Complex 150 Mg Capsule PO 150 mg BIDWM TABATHA Administration Senna/Docusate Sodium 2 tab 10/07/22 18:00 10/08/22 08:42 Sennosides-Docusate Tablet PO Not Given BID [facility] Vitamin D 1,000 unit 10/08/22 09:00 10/08/22 08:42 Cholecalciferol (Vitamin D3) 1,000 Unit Tablet PO 1,000 unit DAILY TABATHA Administration PFSH Acute PFSH: Medical History Chronic diarrhea COPD (chronic obstructive pulmonary disease) Generalized anxiety disorder History of nonmelanoma skin cancer Infliximab (Remicade) long-term use Primary osteoarthritis Tobacco abuse Surgical History History of appendectomy History of back surgery History of cholecystectomy History of colonoscopy Family History Other Cancer Hypertension Social History Smoking and tobacco status: former smoker Household members: significant other Marital status: Current gender identity: Female Vitals/I&O/Wt Last Vital Signs Temp 98.2 F 10/08/22 12:55 Pulse 105 H 10/08/22 12:55 Resp 16 10/08/22 11:25 BP 88/52 10/08/22 12:55 Pulse Ox 94 10/08/22 11:25 O2 Del Method Nasal Cannula 10/08/22 11:25 O2 Flow Rate 2 10/08/22 07:30 10/07/22 10/08/22 10/08/22 22:59 06:59 14:59 Intake Total 2590 / 2590 320 / 2910 1440 / 1440 Output Total 300 / 300 Balance 2290 / 2290 320 / 2610 1440 / 1440 Weight last 48 hrs Weight 72.575 kg Data 10/08/22 07:36 10/08/22 05:14 Coding Level of Care Code Acute Code for Chg Fwd Diagnoses
[2022-10-08 14:13] LABS: Hemoglobin 7.5 g/dL (11.5-15.3)
[2022-10-08 14:56] LABS: D Dimer 0.79 ug/mIFEU (0-0.59)
[2022-10-08] MEDS: midodrine 5 mg TABLET PO ×2 (15:04→20:10)
[2022-10-08 15:13] LABS: Thyroid Stimulating Hormone 0.01 uIU/mL (0.27-4.20)
[2022-10-08] MEDS: acetaminophen 500 mg Tablet 1000 MG PO (17:22)
--- NOTE | 2022-10-08 18:28 | PC.NURSE ---
This nurse titrated patients oxygen down to 1L. This nurse followed up on patient and O2 saturation was at 85%, this nurse turned patient up to 2.5L per nasal cannula. Patient recovered quickly and O2 saturation is 93%-97%.
[2022-10-08] MEDS: ALPRAZolam 0.5 mg Tablet PO (20:10)
[2022-10-09] MEDS: acetaminophen 500 mg Tablet 1000 MG PO ×2 (03:32→11:07)
[2022-10-09 04:26] VITALS: BP 100/67; PULSE 92; RESP 18; TEMP 36.8; O2SAT 92
[2022-10-09] MEDS: enoxaparin 40 mg/0.4 mL Syringe SUBCUT (06:04)
[2022-10-09 07:52] VITALS: PULSE 92; RESP 18; O2SAT 92
[2022-10-09 08:00] VITALS: BP 100/67; PULSE 92; RESP 18; TEMP 37; O2SAT 93
[2022-10-09 08:13] LABS: Hematocrit 33.9 % (37.0-47.0); Hemoglobin 9.8 g/dL (11.5-15.3)
[2022-10-09 08:53] VITALS: RESP 18
[2022-10-09] MEDS: oxyCODONE 5 mg IR Tab/Cap PO (08:53)
[2022-10-09] MEDS: iron polysaccharide complex 150 mg Capsule PO (08:54)
[2022-10-09] MEDS: midodrine 5 mg TABLET PO (08:54)
[2022-10-09] MEDS: duloxetine 60 mg Capsule PO (08:54)
[2022-10-09] MEDS: multivitamin therapeutic Tablet 1 TAB PO (08:54)
[2022-10-09] MEDS: calcium carbonate 500 mg Chew Tablet 1000 MG PO (08:54)
[2022-10-09] MEDS: cholecalciferol (vitamin D3) 1,000 unit Tablet 1000 UNIT PO (08:54)
[2022-10-09] MEDS: mupirocin oint 22 gm 1 APPLIC NASAL (08:55)
[2022-10-09] MEDS: chlorhexidine gluconate 0.12% Btl 473 mL 30 ML MUCOUS MEM ×2 (08:55→13:07)
[2022-10-09 11:23] VITALS: BP 112/68; PULSE 88; RESP 18; TEMP 36.5; O2SAT 93
--- NOTE | 2022-10-09 12:15 | PM.PN ---
Subjective Subjective: patient seen and evaluated this afternoon. Patient overall has recovered well postoperatively. She did receive 1 unit PRBC yesterday by the internal medicine team and she is responded well and her hemoglobin is up to 9.8 and vital signs have been stable and afebrile. She states she feels as though she is more comfortable with discharge home today. She is worked well with therapy. Vitals/I&O/Wt Last Vital Signs Temp 97.7 F 10/09/22 11:23 Pulse 88 10/09/22 11:23 Resp 18 10/09/22 11:23 BP 112/68 10/09/22 11:23 Pulse Ox 93 10/09/22 11:23 O2 Del Method Nasal Cannula 10/09/22 11:23 O2 Flow Rate 3 10/08/22 20:00 10/09/22 10/09/22 10/09/22 06:59 14:59 22:59 Intake Total 240 / 2680 960 / 960 Balance 240 / 2680 960 / 960 Physical Exam Narrative: Examination of the left hip: Examination of the left hip demonstrates dressings on in place is clean dry and intact no signs of erythema or infection around normal postoperative swelling and ecchymosis appreciated she has mild tenderness palpation over hip, knee immobilizer in place she is able to wiggle toes plantarflex and dorsiflex ankle distal pulses are palpable left lower extremity is warm well perfused compartments are soft and compressible sensations intact to light touch distally. Data 10/09/22 08:00 10/08/22 05:14 A&P Assessment and plan (1) Dislocation of hip joint prosthesis: (2) Status post total hip replacement, left: Plan Posterior hip precautions Weight-bear as tolerated left lower extremity Pain control Lovenox DVT prophylaxis Dressing change as needed if saturated Follow-up with Dr. Sanderson 2 weeks postop Patient received 1 unit PRBC yesterday and hemoglobin 9.8 today and stable Internal medicine is on board and appreciate medical management assistance At this point in time patient is stable from an orthopedic standpoint for discharge home. She been given appropriate discharge instructions as well as pain medication and DVT prophylaxis in chart. She will follow-up with Dr. Sanderson in 2 weeks. Understands posterior hip precautions and knee immobilizer. Plan for DC later this afternoon or evening. Patient understands and agrees with current plan. All questions answered. Attestations Medical Necessity Statement*: Ongoing postoperative care dislocation left periprosthetic hip Coding Level of Care Code Acute Code for Chg Fwd Diagnoses Dislocation of hip joint prosthesis T84.029A; Z96.649 Status post total hip replacement, left Z96.642 Time Spent (min) 15
== END 2022-10-09 16:15 | disposition home health service (06) ==
LOC: ER 12:57 → GSGYOACUTE 13:07 → OR 13:29 → MEDSURG 16:09
PROVIDERS: Internal Medicine; Student in an Organized Health Care Education/Training Program; Admitting Provider Specialist; Emergency Provider Family Medicine; PCP Internal Medicine; Visit Provider Specialist
PROC: (CPT 27138; principal; 2022-10-07 13:05)
PROC: (CPT 27138; 2022-10-07 13:05)
DX: T84.021A Dislocation of internal left hip prosthesis, initial encounter (principal); J44.9 Chronic obstructive pulmonary disease, unspecified; X58.XXXA Exposure to other specified factors, initial encounter; Y93.89 Activity, other specified; Y92.003 Bedroom of unspecified non-institutional (private) residence as the place of occurrence of the external cause; R00.0 Tachycardia, unspecified; F41.1 Generalized anxiety disorder; M19.91 Primary osteoarthritis, unspecified site; I95.9 Hypotension, unspecified
CPT/HCPCS: 27138; 27265; 36415; 36430; 72170; 73502; 76000; 80048; 84443; 85014; 85018; 85025; 85378; 86850; 86900; 86920; 96372; 96374; 96375; 96376; 97116; 97161; 97530; 99152; 99285; C1776; G0378; J0131; J0690; J1170; J1650; J2250; J2370; J2405; J2704; J2710; J3010; J3370; J3490; J7030; J7040; P9016

== ENCOUNTER → 2022-10-18 10:45 | Day surgery (SDC) | payer MEDICARE, OTHER, SELFPAY ==
[2022-10-18 11:00] VITALS: BP 97/65; PULSE 100; RESP 18; TEMP 36.4; O2SAT 92
[2022-10-18] MEDS: vedolizumab 300 MG in sodium chloride 0.9% 250 ML 500 MG IV (11:10)
[2022-10-18 11:16] LABS: Basophils # 0.1 10^3/uL (0.0-0.1); Basophils % 0.7 %; Eosinophils # 0.6 10^3/uL (0.0-0.8); Eosinophils % 6.4 %; Hematocrit 36.5 % (37.0-47.0); Hemoglobin 10.5 g/dL (11.5-15.3); Lymphocytes # 2.8 10^3/uL (0.8-4.8); Lymphocytes % 28.8 %; Mean Corpuscular HGB Conc 28.8 g/dL (30.0-36.0); Mean Corpuscular Hemoglobin 24.8 pg (28.0-34.0); Mean Corpuscular Volume 86.3 fl (81-99); Monocytes # 0.8 10^3/uL (0.2-0.9); Monocytes % 8.3 %; Neutrophils # 5.43 10^3/uL (1.8-7.7); Neutrophils % 55.6 %; Nucleated Red Blood Cells % 0 %; Platelet Count 472 10^3/cmm (130-400); Red Blood Count 4.23 10^6/uL (4.1-5.3); Red Cell Distribution Width 16.6 % (12.1-15.1); White Blood Count 9.8 10^3/uL (4.0-10.0)
== END ==
PROVIDERS: PCP Internal Medicine; Visit Provider Internal Medicine Gastroenterology
DX: K51.00 Ulcerative (chronic) pancolitis without complications (principal); Z79.899 Other long term (current) drug therapy
CPT/HCPCS: 36415; 85025; 96365; J3380; J7050

== ENCOUNTER → 2022-11-02 10:37 | Outpatient (BNVA) | payer MEDICARE, OTHER, SELFPAY | PROVIDERS: PCP Internal Medicine; Visit Provider Nurse Practitioner Family | DX: Z96.642 Presence of left artificial hip joint (principal); T84.021A Dislocation of internal left hip prosthesis, initial encounter; Y79.2 Prosthetic and other implants, materials and accessory orthopedic devices associated with adverse incidents | CPT/HCPCS: 73502; 99024 ==

== ENCOUNTER 2022-11-02 11:16 | Emergency (ER) | payer MEDICARE, OTHER, SELFPAY ==
[2022-11-02 11:28] VITALS: BP 102/69; PULSE 86; RESP 15; TEMP 36.5; O2SAT 92
--- NOTE | 2022-11-02 11:30 | ECG_ITS ---
[facility] Test Date: 2022-11-02 Pat Name: Valentine Jones Department: Room: Gender: Female Manager Of Internal: : 1955 Requested By: Rome Holley Order Number: [id number] Jen MD: Joaquín Morrow M.D. Measurements Intervals [place] Rate: 82 P: 18 TX: 155 QRS: -1 QRSD: 94 T: 54 QT: 364 QTc: 427 Interpretive Statements SINUS RHYTHM POSSIBLE LEFT ATRIAL ENLARGEMENT [-0.1mV P-WAVE IN V1/V2] LOW QRS VOLTAGE IN PRECORDIAL LEADS [QRS DEFLECTION < 1.0 mV IN CHEST LEADS] Compared to ECG 09/14/2022 10:42:50 No significant changes Electronically Signed On 11-02-2022 20:26:53 CDT by Joaquín Morrow M.D. [email or web address]
--- NOTE | 2022-11-02 11:30 | XR_ITS ---
WS: [id number] EXAMINATION: XR chest 1V portable [id number] REASON FOR EXAM: dyspnea/cough COMPARISON: 04/19/2018 ORDER DATE: 11/02/2022 11:32 AM TECHNIQUE: A single, portable frontal chest x-ray was obtained. X-RAY FINDINGS: Heart: Normal cardiac silhouette. Lungs: Chronic emphysematous changes. No acute pulmonary infiltrates. No consolidation or pleural fluid. There is a possible 8 to 10 mm pulmonary nodule blending with the lateral left hemidiaphragm o utline in the left lung base versus pleural thickening. Bones: Thoracolumbar curve convex left. Cholecystectomy clips. XR/XR chest 1V portable [id number] IMPRESSION: 1. Chronic emphysematous changes. 2. No acute pulmonary infiltrates. 3. Cannot exclude possible left basal pulmonary nodule suggest additional imagi ng for further assessment beginning with a deep inspiratory frontal and lateral radiographs
[2022-11-02 12:33] LABS: Alanine Aminotransferase 8 U/L (0-33); Albumin Level 3.9 g/dL (3.5-5.2); Alkaline Phosphatase 160 U/L (35-105); Aspartate Amino Transferase 13 U/L (0-32); Blood Urea Nitrogen 10 mg/dL (8-23); Carbon Dioxide 21 mmol/L (22-29); Chloride 106 mmol/L (98-107); Globulin 3.2 g/dL (1.3-4.6); Glucose 118 mg/dL (65-115); Osmolality Calculated 290 mOsm/kg (285-295); Sodium 140 mmol/L (136-145); Total Bilirubin 0.2 mg/dL (0.15-1.2); Total Protein 7.1 g/dL (6.6-8.7)
[2022-11-02 12:38] LABS: Basophils % 0.4 %; Eosinophils # 0.5 10^3/uL (0.0-0.8); Eosinophils % 4.5 %; Hematocrit 37.3 % (37.0-47.0); Hemoglobin 10.8 g/dL (11.5-15.3); Lymphocytes # 3.1 10^3/uL (0.8-4.8); Lymphocytes % 30.3 %; Mean Corpuscular Hemoglobin 24.4 pg (28.0-34.0); Mean Corpuscular Volume 84.2 fl (81-99); Monocytes # 0.6 10^3/uL (0.2-0.9); Neutrophils # 5.91 10^3/uL (1.8-7.7); Neutrophils % 58.5 %; Nucleated Red Blood Cells % 0 %; Platelet Count 430 10^3/cmm (130-400); Red Blood Count 4.43 10^6/uL (4.1-5.3); Red Cell Distribution Width 16.2 % (12.1-15.1); White Blood Count 10.1 10^3/uL (4.0-10.0)
--- NOTE | 2022-11-02 12:44 | ED_ITS ---
HPI - Dizziness General: Chief Complaint: Dizziness Stated Complaint: SOB/ Light headed Time Seen by Provider: 11/02/22 11:24 Source: patient Mode of arrival: wheelchair History of Present Illness: HPI Narrative: 67-year-old female presents emergency room from medical office building as a rapid response. Patient is going to follow-up appointment with a midlevel in the orthopedic clinic and was headed back to the parking lot she had walked to the elevators began to feel lightheaded and dizzy when the elevator opened there were staff present with a empty wheelchair which she took advantage of but after she sat on the wheelchair she got lightheaded enough that she actually passed out. Patient never had any chest pain or discomfort. She has noticed last several weeks that she gets more short of breath with exertion. This predated her most recent hip surgery and the revision after her dislocation. MD elicited complaint: lightheadedness and near syncope Onset (ago): minute(s) Timing: gradual onset Description: sense of movement, lightheadedness and difficulty walking Context: change in body position Exacerbating factors: nothing Relieving factors: nothing Associated symptoms: Denies chest pain, chills, cough, diaphoresis, ear pressure, fevers/chills, headache(s), malaise, nausea, palpitations, rash, short of breath, syncope, vomiting or weakness Associated neuro symptoms: Deny confusion, difficulty speaking, dysphagia, diplopia, extremity weakness, facial numbness, facial weakness, gait changes, numbness in extremities or visual changes Review of Systems Const: Denies: fever(s), chills, malaise or diaphoresis Card: Denies: chest pain, palpitations or syncope Resp: Reports: dyspnea; Denies: productive cough or non-productive cough GI: Denies: abdominal pain, nausea, vomiting or dysphagia : Denies: flank pain, difficulty voiding, dysuria, urinary frequency or urinary urgency Skin/Breast: Denies: rash or pruritus Neuro: Denies: headache(s), numbness in extremities or confusion PFSH ED PFSH: Medical History Chronic diarrhea COPD (chronic obstructive pulmonary disease) Generalized anxiety disorder History of nonmelanoma skin cancer Infliximab (Remicade) long-term use Primary osteoarthritis Tobacco abuse Surgical History History of appendectomy History of back surgery History of cholecystectomy History of colonoscopy Family History Other Cancer Hypertension Social History Smoking and tobacco status: former smoker Household members: significant other Marital status: Current gender identity: Female Physical Exam Const: COMMON NORMALS: no acute distress GENERAL APPEARANCE: cooperative and comfortable ORIENTATION/CONSCIOUSNESS: Yes awake, Yes oriented to person, Yes oriented to place and Yes oriented to time HENMT: COMMON NORMALS: normocephalic, atraumatic and hearing grossly normal bilaterally HEAD & SCALP: normocephalic and atraumatic Resp: COMMON NORMALS: normal respiratory effort, No retractions, No use of accessory muscles and clear to auscultation bilaterally AUSCULTATION: clear to auscultation bilaterally Cardio: COMMON NORMALS: regular rate, regular rhythm and No murmurs present (Cardio) RATE: regular rate RHYTHM: regular rhythm GI: COMMON NORMALS: Soft to palpation and No hepatosplenomegaly present AUSCULTATION: Yes normoactive bowel sounds PALPATION: Yes Soft to palpation, No Tenderness to palpation present (GI), No Guarding due to palpation present (GI) and Yes No hepatosplenomegaly present Extremity: COMMON NORMALS: normal to inspection, capillary refill normal, no clubbing, cyanosis or edema, no calf tenderness and no pedal edema Neuro: SENSORIUM/ORIENTATION: Yes oriented to person, Yes oriented to place and Yes oriented to time Skin: COMMON NORMALS: no rashes or lesions noted GENERAL SKIN EXAM: no rashes or lesions noted Course Vital Signs: Vital signs: Vital Signs Temperature 97.7 F 11/02/22 11:28 Pulse Rate 87 11/02/22 13:32 Respiratory Rate 15 11/02/22 13:32 Blood Pressure 116/70 11/02/22 13:32 Pulse Oximetry 93 11/02/22 13:32 Oxygen Delivery Me thod Room Air 11/02/22 11:28 MDM - Dizziness Medical Decision Making Labs and imaging reviewed we did do a CT of the chest because of her episode today as well as her having had significant amount of shortness of breath with even minimal exertion no PE noted. She does have some COPD changes. We will start her on Symbicort use albuterol as needed refer her back to her primary care doctor. Incidental finding of a thyroid nodule and talking to her sign ificant other who is a physician she has had this worked up in the past she was supposed to having follow-up but had not had some for some time we will set her up for ultrasound and referral to ENT Medical Records I reviewed the patient's medical records. Lab Data I reviewed the patient's lab results. 11/02/22 11:55 11/02/22 11:55 Radiology Impressions Chest X-Ray 11/02/22 11:30 IMPRESSION: 1. Chronic emphysematous changes. 2. No acute pulmonary infiltrates. 3. Cannot exclude possible left basal pulmonary nodule suggest additional imaging for further assessment beginning with a deep inspiratory frontal and lateral radiographs Chest CTA 11/02/22 14:13 IMPRESSION: 1. Negative CT angiogram of the chest. No evidence of acute pulmonary embolism. 2. COPD with scattered ground-glass opacities that may represent combination of dependent hypoventilatory changes and air trapping. 3. 5 mm pulmonary nodule right upper lobe, stable. 4. 1.5 cm benign adenoma left adrenal gland, stable. 5. 2.5 cm nodule right lobe of the thyroid gland which in view of its size should be further assessed on nonemergent thyroid ultrasound exam. COMMENTS: 1. Consistent with the [employer]'s Incidental Findings Committee white paper (J Am Live Radiol 2015): In patients aged 35 years and older with an incidental thyroid nodule equal to or greater than 1.[address], MRI or extrathyroidal US, further evaluation with dedicated thyroid US is recommended for patients with normal life expectancy and without comorbidities. For smaller nodules without suspicious features, no further evaluation or follow up is recommended. 2. In the absence of a history or active diagnosis of lung cancer, it is recommended that this patient with emphysema be evaluated for enrollment in a low dose CT lung cancer screening program. Laboratory Results WBC 10.1 10^3/uL (4.0-10.0) H 11/02/22 11:55 RBC 4.43 10^6/uL (4.1-5.3) 11/02/22 11:55 Hgb 10.8 g/dL (11.5-15.3) L 11/02/22 11:55 Hct 37.3 % (37.0-47.0) 11/02/22 11:55 MCV 84.2 fl (81-99) 11/02/22 11:55 MCH 24.4 pg (28.0-34.0) L 11/02/22 11:55 MCHC 29.0 g/dL (30.0-36.0) L 11/02/22 11:55 RDW 16.2 % (12.1-15.1) H 11/02/22 11:55 Plt Count 430 10^3/cmm (130-400) H 11/02/22 11:55 MPV 10.0 fL (7.4-10.4) 11/02/22 11:55 Neut % (Auto) 58.5 % 11/02/22 11:55 Lymph % (Auto) 30.3 % 11/02/22 11:55 Bradley % (Auto) 6.0 % 11/02/22 11:55 Eos % (Auto) 4.5 % 11/02/22 11:55 Baso % (Auto) 0.4 % 11/02/22 11:55 Neut # (Auto) 5.91 10^3/uL (1.8-7.7) 11/02/22 11:55 Lymph # (Auto) 3.1 10^3/uL (0.8-4.8) 11/02/22 11:55 Bradley # (Auto) 0.6 10^3/uL (0.2-0.9) 11/02/22 11:55 Eos # (Auto) 0.5 10^3/uL (0.0-0.8) 11/02/22 11:55 Baso # (Auto) 0.0 10^3/uL (0.0-0.1) 11/02/22 11:55 Nucleated RBC % (auto) 0 % 11/02/22 11:55 Nucleated RBCs # 0.0 /100WBC 11/02/22 11:55 Sodium 140 mmol/L (136-145) 11/02/22 11:55 Potassium 4.0 mmol/L (3.5-5.1) 11/02/22 11:55 Chloride 106 mmol/L (98-107) 11/02/22 11:55 Carbon Dioxide 21 mmol/L (22-29) L 11/02/22 11:55 Anion Gap 17.0 (5-19) 11/02/22 11:55 BUN 10 mg/dL (8-23) 11/02/22 11:55 Creatinine 0.7 mg/dL (0.5-0.9) 11/02/22 11:55 GFR Calculation 83.0 mL/min (90-130) L 11/02/22 11:55 Glucose 118 mg/dL (65-115) H 11/02/22 11:55 Calculated Osmolality 290 mOsm/kg (285-295) 11/02/22 11:55 Calcium 9.1 mg/dL (8.5-10.5) 11/02/22 11:55 Total Bilirubin 0.2 mg/dL (0.15-1.2) 11/02/22 11:55 AST 13 U/L (0-32) 11/02/22 11:55 ALT 8 U/L (0-33) 11/02/22 11:55 Alkaline Phosphatase 160 U/L (35-105) H 11/02/22 11:55 Total Protein 7.1 g/dL (6.6-8.7) 11/02/22 11:55 Albumin 3.9 g/dL (3.5-5.2) 11/02/22 11:55 Globulin 3.2 g/dL (1.3-4.6) 11/02/22 11:55 Urine Color Yellow (Yellow) 11/02/22 13:00 Urine Appearance Sl hazy (CLEAR) A 11/02/22 13:00 Urine pH 5 (5-7) 11/02/22 13:00 Ur Specific [place] 1.020 (1.005-1.030) 11/02/22 13:00 Urine Protein Neg (Negative) 11/02/22 13:00 Urine Glucose (UA) Norm (Normal) 11/02/22 13:00 Urine Ketones Negative (Negative) 11/02/22 13:00 Urine Blood Neg (Negative) 11/02/22 13:00 Urine Nitrate Negative (Negative) 11/02/22 13:00 Urine Bilirubin Neg (Negative) 11/02/22 13:00 Urine Urobilinogen Norm mg/dL (Negative) 11/02/22 13:00 Ur Leukocyte Esterase Negative (Negative) 11/02/22 13:00 Urine RBC 0-4 /hpf (0-2) H 11/02/22 13:00 Urine WBC 0-4 /hpf (0-5) H 11/02/22 13:00 Ur Squamous Epith Cells 0-4 /hpf (0-5) H 11/02/22 13:00 Amorphous Sediment Not Reportable 11/02/22 13:00 Urine Bacteria None /hpf (NONE) 11/02/22 13:00 Hyaline Casts 5-10 /lpf H 11/02/22 13:00 Urine Mucus 3+ /hpf 11/02/22 13:00 Discharge Plan Discharge Patient Disposition: Home Clinical Impression: Orthostasis, COPD (chronic obstructive pulmonary disease), Thyroid nodule Condition: Stable Prescriptions: New Symbicort 80-4.5 mcg/actuation HFA aerosol inhaler 2 inh inhalation BID Qty: 10.2 0RF albuterol sulfate 90 mcg/actuation HFA aerosol inhaler 2 inh INHALATION Q4H PRN (Reason: shortness of breath or wheezing) Qty: 18 0RF No Action duloxetine 60 mg capsule,delayed release(DR/EC) 60 mg PO DAILY Entyvio 300 mg recon soln 300 mg IV .EVERY 8 WEEKS Qty: 1 12RF alprazolam 0.5 mg tablet 0.5 mg PO BEDTIME Qty: 30 3RF Benadryl Allergy 25 mg pe PO PRN oxycodone 5 mg tablet 5 mg PO Q4H PRN (Reason: Pain) Discharge Orders: Discharge ED (Routine); Ordered 11/02/22 Ordered By: Rome Baltazar Referrals: Rizwan French MD [Primary Care Provider] - Discharge Diet: Usual diet Discharge Activity: Increase activity as tolerated Patient Instructions: Opioid Safety, Pain Management Activity Restrictions/Additional Instructions: You were seen today after an episode of orthostasis. Since she is also complained of shortness of breath a CT of your chest was done. CT shows changes of COPD and some benign-appearing pulmonary nodules. Additionally an incidental finding of thyroid nodule. You are given inhalers to begin to relieve the COPD and case management make arrangements for an ultrasound of your thyroid. Follow-up on both of these issues with Dr. French in his office. Coding Level of Care Code ED Revenue Cycle Consultant for Becky Ramirez
[2022-11-02 13:01] LABS: Calcium 9.1 mg/dL (8.5-10.5)
[2022-11-02 13:25] LABS: Add Urine Microscopic? YES; Bilirubin Urine Neg (Negative); Blood Urine Neg (Negative); Glucose Urine UA Norm (Normal); Ketones Urine Negative (Negative); Leukocyte Esterase Urine Negative (Negative); Mucus Urine 3+ /hpf; Nitrate Urine Negative (Negative); Protein Urine Neg (Negative); RBC Urine 0-4 /hpf (0-2); Squamous Epithelial Cell Urine 0-4 /hpf (0-5); Urine Appearance SL Hazy (CLEAR); Urine Color Yellow (Yellow); Urobilinogen Urine Norm (Negative); WBC Urine 0-4 /hpf (0-5); pH Urine 5 (5-7)
[2022-11-02 13:26] LABS: Add Urine Culture? No
[2022-11-02 13:32] VITALS: BP 116/70; PULSE 87; RESP 15; O2SAT 93
--- NOTE | 2022-11-02 14:13 | CTR_ITS ---
PROCEDURE INFORMATION: Exam: CTA Chest With Contrast Exam date and time: 11/02/2022 4:03 PM Age: 67 years old Clinical indication: Dyspnea; Additional info: Dyspnea on exertion TECHNIQUE: Imaging protocol: Computed tomographic angiography of the chest with contrast. Exam focused on the arteries. 3D rendering (Not supervised by radiologist): MIP and/or 3D reconstructed images were created by the technologist. Radiation optimization: All CT scans at this facility use at least one of these dose optimization techniques: automated exposure control; mA and/or kV adjustment per patient size (includes targeted exams where dose is matched to clinical indication); or iterative reconstruction. Contrast material: OMNIPAQUE 350; Contrast volume: 100 ml; Contrast route: INTRAVENOUS (IV); REPORTING DATA: Count of CT and Cardiac NM exams in prior 12 months: This patient has received 2 known CTs and 0 known cardiac nuclear medicine studies in the 12 months prior to the current study. COMPARISON: CT lung screening [id number] 04/27/2022 12:31 PM RADIATION DOSE METRICS: Total DLP (mGy-cm): 211.43 FINDINGS: Pulmonary arteries: Pulmonary vasculature is adequately opacified without filling defects or other evidence of acute pulmonary embolism. Aorta: Minimal atherosclerotic changes and tortuosity of the thoracic aorta which is otherwise unremarkable. Thyroid: 2.5 cm thyroid nodule rising right lobe better demonstrated on this postcontrast scan. Lungs: COPD with scattered emphysematous changes, stable. 5 mm pulmonary nodule right upper lobe abutting the major fissure, unchanged. Small irregular bandlike density left lingula now has a appearance of subsegmental atelectasis. Additional scattered linear atelectasis lower lung zones a and hypoventilatory changes along the dependent portion of the paravertebral gutters and fissures. Additional indistinct ground-glass opacities left mid-lower lung zone that may represent element of superimposed air trapping and obstructive small airway disease. Pleural spaces: Unremarkable. No pneumothorax. No pleural effusion. Heart: Heart is not significantly enlarged. There are mild calcifications of the coronary arteries. No significant pericardial effusion. Lymph nodes: Unremarkable. No enlarged lymph nodes. Adrenal glands: 1.5 cm circumscribed left adrenal nodule with density readings consistent with benign adenoma. Bones/joints: Subacute healing nondisplaced fractures left lower ribcage, new. Mild multilevel degenerative changes throughout the thoracic spine, stable. Soft tissues: Unremarkable. CT/CT angio chest PE protcl [id number] IMPRESSION: 1. Negative CT angiogram of the chest. No evidence of acute pulmonary embolism. 2. COPD with scattered ground-glass opacities that may represent combination of dependent hypoventilatory changes and air trapping. 3. 5 mm pulmonary nodule right upper lobe, stable. 4. 1.5 cm benign adenoma left adrenal gland, stable. 5. 2.5 cm nodule right lobe of the thyroid gland which in view of its size should be further assessed on nonemergent thyroid ultrasound exam. COMMENTS: 1. Consistent with the [employer]'s Incidental Findings Committee white paper (J Am Live Radiol 2015): In patients aged 35 years and older with an incidental thyroid nodule equal to or greater than 1.[address], MRI or extrathyroidal US, further evaluation with dedicated thyroid US is recommended for patients with normal life expectancy and without comorbidities. For smaller nodules without suspicious features, no further evaluation or follow up is recommended. 2. In the absence of a history or active diagnosis of lung cancer, it is recommended that this patient with emphysema be evaluated for enrollment in a low dose CT lung cancer screening program.
[2022-11-02] MEDS: iohexol 350 mg/mL 500 mL Btl (per mL) IV (16:04)
--- NOTE | 2022-11-07 09:55 | DCPLANNER ---
Addendum entered by Yvette Smith 12/09/22 10:57: Patient did not attend appointment with ENT Addendum entered by Yvette Smith 11/16/22 10:11: Patient has a follow up appointment scheduled for Tuesday, November 29, 2022 at 4:[address] Rodríguez at ENT. Original Note: regulatory affairs manager had message to schedule a follow up appointment for patient with ENT. regulatory affairs manager sent patients information to the front office staff at ENT. Patients information will be printed and reviewed. Clinic will call patient with appointment information.
--- NOTE | 2022-11-08 08:51 | DCPLANNER ---
Addendum entered by Yvette Smith 11/18/22 10:51: Patient did attend appointment Addendum entered by Yvette Smith 11/16/22 09:32: Patient has a follow up appointment scheduled for thyroid US for Wednesday, November 16, 2022 at 1:30 Original Note: division service manager had message to schedule an outpatient thyroid ultrasound, manager of case management faxed signed order to centralized scheduling, who will call patient with appointment information.
== END 2022-11-02 17:28 | disposition home or self-care (01) ==
PROVIDERS: Emergency Provider Family Medicine; PCP Internal Medicine
DX: I95.1 Orthostatic hypotension (principal); J44.9 Chronic obstructive pulmonary disease, unspecified; E04.1 Nontoxic single thyroid nodule; Z79.899 Other long term (current) drug therapy; Z87.891 Personal history of nicotine dependence
CPT/HCPCS: 71045; 71275; 80053; 81001; 85025; 93005; 99285; Q9967

== ENCOUNTER 2022-11-16 13:16 | Outpatient (CLI) | payer MEDICARE, OTHER, SELFPAY ==
--- NOTE | 2022-11-16 13:35 | US_ITS ---
WS: [id number] ULTRASOUND THYROID TECHNIQUE: Ultrasound of the thyroid. CLINICAL INFORMATION: THYROID NODULE COMPARISON: Ultrasound 2017 and CTA 11/02/2022 FINDINGS: Thyroid: Diffuse heterogeneous multinodular thyroid. Right thyroid lobe: 5.3 cm x 2.3 cm x 2.0 cm Right superior thyroid nodule measuring 1.3 x 1.4 x 1.7 cm Complex mid right thyroid nodule measuring 1.6 x 1.4 x 2.1 cm Left thyroid lobe: 4.4 cm x 1.6 cm x 1.6 cm. Left upper pole thyroid nodule measuring 1.1 x 0.6 x 1.2 cm Isthmus: 0.4 mm. Ovoid nodule in the isthmus measuring 1.2 x 0.5 x 1.4 cm Cervical lymphadenopathy: None. 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 Recommend continued annual or biannual surveillance
== END 2022-11-16 13:17 | disposition home or self-care (01) ==
PROVIDERS: PCP Internal Medicine; Visit Provider Family Medicine
DX: E04.1 Nontoxic single thyroid nodule (principal)
CPT/HCPCS: 76536

== ENCOUNTER → 2022-11-23 10:21 | Outpatient (BNVA) | payer MEDICARE, OTHER, SELFPAY | PROVIDERS: PCP Internal Medicine; Visit Provider Nurse Practitioner Family | DX: Z96.642 Presence of left artificial hip joint (principal); T84.021A Dislocation of internal left hip prosthesis, initial encounter; X58.XXXA Exposure to other specified factors, initial encounter | CPT/HCPCS: 73502; 99024; 99213 ==

== ENCOUNTER → 2022-11-29 10:43 | Day surgery (SDC) | payer MEDICARE, OTHER, SELFPAY ==
[2022-11-29] MEDS: vedolizumab 300 MG in sodium chloride 0.9% 250 ML 500 MG IV (11:05)
[2022-11-29 11:11] LABS: Basophils # 0.1 10^3/uL (0.0-0.1); Basophils % 0.7 %; Eosinophils # 0.6 10^3/uL (0.0-0.8); Eosinophils % 7.3 %; Hematocrit 33.5 % (37.0-47.0); Hemoglobin 9.6 g/dL (11.5-15.3); Lymphocytes # 2.5 10^3/uL (0.8-4.8); Lymphocytes % 28.2 %; Mean Corpuscular HGB Conc 28.7 g/dL (30.0-36.0); Mean Corpuscular Volume 80.3 fl (81-99); Mean Platelet Volume 9.4 fL (7.4-10.4); Monocytes # 0.7 10^3/uL (0.2-0.9); Monocytes % 7.8 %; Neutrophils # 4.91 10^3/uL (1.8-7.7); Neutrophils % 55.8 %; Nucleated Red Blood Cells % 0 %; Platelet Count 443 10^3/cmm (130-400); Red Blood Count 4.17 10^6/uL (4.1-5.3); Red Cell Distribution Width 16.4 % (12.1-15.1); White Blood Count 8.8 10^3/uL (4.0-10.0)
[2022-11-29 11:20] VITALS: BP 94/61; PULSE 90; RESP 18; TEMP 36.7; O2SAT 94
== END ==
PROVIDERS: PCP Internal Medicine; Visit Provider Internal Medicine Gastroenterology
DX: K51.00 Ulcerative (chronic) pancolitis without complications (principal); Z79.899 Other long term (current) drug therapy
CPT/HCPCS: 36415; 85025; 96365; J3380; J7050

== ENCOUNTER → 2022-12-15 10:56 | Day surgery (SDC) | payer MEDICARE, OTHER, SELFPAY ==
[2022-12-15 11:00] VITALS: BP 126/66; PULSE 102; RESP 18; TEMP 36.3; O2SAT 96
[2022-12-15] MEDS: ferric carboxy (IVPB) 750 MG in sodium chloride 0.9% (100 ml) 100 ML 250 MG IV (11:01)
== END ==
PROVIDERS: PCP Internal Medicine; Visit Provider Internal Medicine
DX: E61.1 Iron deficiency (principal)
CPT/HCPCS: 96365; J1439

== ENCOUNTER → 2022-12-20 14:44 | Outpatient (BNVA) | payer MEDICARE, OTHER, SELFPAY | PROVIDERS: PCP Internal Medicine; Visit Provider Dermatology | DX: L57.0 Actinic keratosis (principal); L82.0 Inflamed seborrheic keratosis; L81.4 Other melanin hyperpigmentation; D22.5 Melanocytic nevi of trunk; Z87.891 Personal history of nicotine dependence; Z85.828 Personal history of other malignant neoplasm of skin; L57.8 Other skin changes due to chronic exposure to nonionizing radiation | CPT/HCPCS: 17000; 17003; 17110; 99213 ==

== ENCOUNTER → 2022-12-22 10:48 | Day surgery (SDC) | payer MEDICARE, OTHER, SELFPAY ==
[2022-12-22 10:53] VITALS: BP 117/64; PULSE 69; RESP 18; TEMP 36.2; O2SAT 96
[2022-12-22] MEDS: ferric carboxy (IVPB) 750 MG in sodium chloride 0.9% (100 ml) 100 ML 275 MG IV (11:02)
== END ==
PROVIDERS: PCP Internal Medicine; Visit Provider Internal Medicine
DX: E61.1 Iron deficiency (principal)
CPT/HCPCS: 96365; J1439

== ENCOUNTER → 2022-12-29 10:48 | Day surgery (SDC) | payer MEDICARE, OTHER, SELFPAY ==
[2022-12-29] MEDS: ferric carboxy (IVPB) 750 MG in sodium chloride 0.9% (100 ml) 100 ML 345 MG IV (11:03)
[2022-12-29 11:06] VITALS: BP 95/55; PULSE 64; RESP 18; TEMP 36.5; O2SAT 94
== END ==
PROVIDERS: PCP Internal Medicine; Visit Provider Internal Medicine
DX: E61.1 Iron deficiency (principal)
CPT/HCPCS: 96365; J1439

== ENCOUNTER → 2023-01-09 10:41 | Day surgery (SDC) | payer MEDICARE, OTHER, SELFPAY ==
[2023-01-09 11:00] VITALS: BP 99/57; PULSE 59; RESP 18; TEMP 36.8; O2SAT 97
[2023-01-09] MEDS: vedolizumab 300 MG in sodium chloride 0.9% 250 ML 500 MG IV (11:10)
[2023-01-09 11:16] LABS: Basophils # 0.1 10^3/uL (0.0-0.1); Basophils % 1.2 %; Eosinophils # 0.2 10^3/uL (0.0-0.8); Hematocrit 41.1 % (36-47); Lymphocytes # 2.3 10^3/uL (0.8-4.8); Lymphocytes % 38.3 %; Mean Corpuscular HGB Conc 30.2 g/dL (30-55); Mean Corpuscular Volume 89.5 fl (85-98); Mean Platelet Volume 9.8 fL (7.4-10.4); Monocytes # 0.3 10^3/uL (0.2-0.9); Monocytes % 5.7 %; Neutrophils # 3.04 10^3/uL (1.8-7.7); Neutrophils % 50.6 %; Nucleated Red Blood Cells % 0 %; Platelet Count 306 10^3/cmm (157-399); Red Blood Count 4.59 10^6/uL (3.85-5.65)
[2023-01-09 12:02] LABS: Add RBC Morph Yes; Slide Review Slide Review Perform
[2023-01-09 12:04] LABS: RBC Morph Comp No
[2023-01-09 12:07] LABS: Anisocytosis 2+; Hypochromasia 2+; Macrocytosis 1+
== END ==
PROVIDERS: Nurse Practitioner; PCP Internal Medicine; Visit Provider Internal Medicine Gastroenterology
DX: E61.1 Iron deficiency (principal); K51.00 Ulcerative (chronic) pancolitis without complications
CPT/HCPCS: 36415; 85025; 96365; J3380; J7050

== ENCOUNTER → 2023-02-17 10:49 | Day surgery (SDC) | payer MEDICARE, OTHER, SELFPAY ==
[2023-02-17 10:55] VITALS: BP 109/72; PULSE 63; RESP 18; TEMP 36.4; O2SAT 97
[2023-02-17] MEDS: vedolizumab 300 MG in sodium chloride 0.9% 250 ML 500 MG IV (10:55)
[2023-02-17 11:28] LABS: Basophils # 0.1 10^3/uL (0.0-0.1); Basophils % 0.7 %; Eosinophils # 0.7 10^3/uL (0.0-0.8); Eosinophils % 9.9 %; Hematocrit 42.2 % (36-47); Lymphocytes # 2.6 10^3/uL (0.8-4.8); Lymphocytes % 37.6 %; Mean Corpuscular Hemoglobin 29.4 pg (27-33); Mean Corpuscular Volume 91.9 fl (85-98); Mean Platelet Volume 10.1 fL (7.4-10.4); Monocytes # 0.4 10^3/uL (0.2-0.9); Monocytes % 5.4 %; Neutrophils # 3.24 10^3/uL (1.8-7.7); Neutrophils % 46.3 %; Nucleated Red Blood Cells % 0 %; Platelet Count 277 10^3/cmm (157-399); Red Blood Count 4.59 10^6/uL (3.85-5.65); Red Cell Distribution Width 21.8 % (12.1-15.1)
== END ==
PROVIDERS: Nurse Practitioner; PCP Internal Medicine; Visit Provider Internal Medicine Gastroenterology
DX: K51.90 Ulcerative colitis, unspecified, without complications (principal)
CPT/HCPCS: 36415; 85025; 96365; J3380; J7050

== ENCOUNTER 2023-04-04 10:50 | Oncology outpatient (recurring) (ONCR) | payer MEDICARE, OTHER, SELFPAY ==
[2023-04-04 11:45] VITALS: BP 100/67; PULSE 56; RESP 16; TEMP 36.3; O2SAT 95
[2023-04-04] MEDS: vedolizumab 300 MG in sodium chloride 0.9% 250 ML 500 MG IV (12:21)
[2023-04-04 13:05] VITALS: BP 121/69; PULSE 65; RESP 17; TEMP 36.5; O2SAT 97
== END 2023-04-09 23:59 | disposition home or self-care (01) ==
PROVIDERS: PCP Internal Medicine; Visit Provider Nurse Practitioner
DX: K51.90 Ulcerative colitis, unspecified, without complications (principal); Z53.9 Procedure and treatment not carried out, unspecified reason
CPT/HCPCS: 96365; J3380; J7050

== ENCOUNTER → 2023-05-12 10:23 | Outpatient (BNVA) | payer MEDICARE, OTHER, SELFPAY | PROVIDERS: PCP Internal Medicine; Referring Provider Internal Medicine; Visit Provider Internal Medicine | DX: E05.90 Thyrotoxicosis, unspecified without thyrotoxic crisis or storm (principal); E04.2 Nontoxic multinodular goiter | CPT/HCPCS: 36415; 83516; 84439; 84443; 84480; 86376; 86800; 99204 ==

== ENCOUNTER 2023-05-16 13:45 | Oncology outpatient (recurring) (ONCR) | payer MEDICARE, OTHER, SELFPAY ==
[2023-05-16 14:07] VITALS: BP 111/74; PULSE 70; RESP 17; TEMP 36.6; O2SAT 97
[2023-05-16] MEDS: sodium chloride 0.9% 250 ML 75 ML IV (14:30)
[2023-05-16 14:45] LABS: Basophils # 0.1 10^3/uL (0.0-0.1); Basophils % 0.7 %; Eosinophils # 0.5 10^3/uL (0.0-0.8); Eosinophils % 7.2 %; Hematocrit 38.9 % (36-47); Lymphocytes # 1.9 10^3/uL (0.8-4.8); Lymphocytes % 27.5 %; Mean Corpuscular HGB Conc 31.9 g/dL (30-55); Mean Corpuscular Hemoglobin 32.3 pg (27-33); Mean Corpuscular Volume 101.3 fl (85-98); Mean Platelet Volume 9.4 fL (7.4-10.4); Monocytes # 0.5 10^3/uL (0.2-0.9); Monocytes % 7.2 %; Neutrophils # 3.96 10^3/uL (1.8-7.7); Neutrophils % 57.3 %; Nucleated Red Blood Cells % 0 %; Platelet Count 330 10^3/cmm (157-399); Red Blood Count 3.84 10^6/uL (3.85-5.65); Red Cell Distribution Width 13.6 % (12.1-15.1); White Blood Count 6.92 10^3/uL (3.29-11.43)
[2023-05-16] MEDS: vedolizumab 300 MG in sodium chloride 0.9% 250 ML 500 MG IV (14:53)
[2023-05-16 15:39] VITALS: BP 118/74; PULSE 67; RESP 16; TEMP 36.2; O2SAT 97
== END 2023-06-08 23:59 | disposition home or self-care (01) ==
LOC: ONCMED 13:45
PROVIDERS: PCP Internal Medicine; Visit Provider Nurse Practitioner
DX: K51.90 Ulcerative colitis, unspecified, without complications (principal)
CPT/HCPCS: 85025; 96365; J3380; J7050

== ENCOUNTER 2023-06-15 12:58 | Outpatient (CLI) | payer MEDICARE, OTHER, SELFPAY ==
--- NOTE | 2023-06-15 13:15 | US_ITS ---
WS: [id number] THYROID ULTRASOUND HISTORY: thyroid nodule COMPARISON: None available. Right lobe: 2.4 cm x 2.9 cm x 4.4 cm (w x ap x l). Volume: 14.7 cm3. Enlarged thyroid. Multi nodular thyroid. Nodule with echogenic foci measuring 1.4 x 1.3 x 2.2 cm in t he mid thyroid. There are a few cystic areas. This nodule is nearly isoechoic to the remaining gland. There is an additional nodule in the superior pole measuring 1.2 x 0.9 x 1.4 cm. Additional hypoecho ic nodule with a few cystic areas in the posterior mid RIGHT gland measures 1.7 x 1.6 x 1.9 cm. Left lobe: 2.0 cm x 1.7 cm x 4.3 cm (w x ap x l). Volume: 6.8 cm3. Normal sized gland. There are few spongiform nodules scattered throughout the gland. Isthmus: 0.4 cm. LEFT isthmus nodule unchanged. IMPRESSION: 1. TI-RADS 4: Nodule in the mid RIGHT thyroid measuring 1.4 x 1.3 x 2.2 cm. There is an additional n odule also TI-RADS 4 which we very difficult to biopsy due to its very deep position. Echogenic foci within the more superficial nodule raise the level of concern. Consider FNA evaluation of the more egan perficial thyroid nodule in the RIGHT lobe. 2. Spongiform nodules LEFT thyroid.
== END 2023-06-15 12:59 | disposition home or self-care (01) ==
LOC: RAD 12:59
PROVIDERS: PCP Internal Medicine; Visit Provider Internal Medicine
DX: E04.1 Nontoxic single thyroid nodule (principal)
CPT/HCPCS: 76536

== ENCOUNTER 2023-06-19 14:34 | Outpatient (CLI) | payer MEDICARE, OTHER, SELFPAY ==
[2023-06-19 15:28] LABS: Thyroid Stimulating Hormone 6.84 uIU/mL (0.27-4.20)
[2023-06-20 09:20] LABS: T3 Total 112 ng/dL (76-181)
== END 2023-06-19 14:35 | disposition home or self-care (01) ==
LOC: LAB 14:35
PROVIDERS: PCP Internal Medicine; Visit Provider Internal Medicine
DX: E07.9 Disorder of thyroid, unspecified (principal)
CPT/HCPCS: 36415; 84439; 84443; 84480

== ENCOUNTER → 2023-06-20 14:08 | Outpatient (BNVA) | payer MEDICARE, OTHER, SELFPAY | PROVIDERS: PCP Internal Medicine; Visit Provider Nurse Practitioner Family | DX: L57.0 Actinic keratosis (principal); L82.0 Inflamed seborrheic keratosis; L82.1 Other seborrheic keratosis; L81.4 Other melanin hyperpigmentation; Z85.828 Personal history of other malignant neoplasm of skin | CPT/HCPCS: 17000; 17110; 99213 ==

== ENCOUNTER → 2023-06-21 11:28 | Outpatient (BNVA) | payer MEDICARE, OTHER, SELFPAY | PROVIDERS: PCP Internal Medicine; Visit Provider Internal Medicine | DX: R06.09 Other forms of dyspnea (principal); E05.90 Thyrotoxicosis, unspecified without thyrotoxic crisis or storm; E04.2 Nontoxic multinodular goiter | CPT/HCPCS: 99214 ==

== ENCOUNTER 2023-06-27 13:59 | Oncology outpatient (recurring) (ONCR) | payer MEDICARE, OTHER, SELFPAY ==
[2023-06-27] MEDS: vedolizumab 300 MG in sodium chloride 0.9% 250 ML 500 MG IV (15:07)
[2023-06-27 15:08] LABS: Basophils # 0.1 10^3/uL (0.0-0.1); Basophils % 0.8 %; Eosinophils # 0.7 10^3/uL (0.0-0.8); Eosinophils % 11.1 %; Hematocrit 41.9 % (36-47); Lymphocytes # 2.4 10^3/uL (0.8-4.8); Lymphocytes % 37.2 %; Mean Corpuscular HGB Conc 31.5 g/dL (30-55); Mean Corpuscular Volume 98.4 fl (85-98); Mean Platelet Volume 9.7 fL (7.4-10.4); Monocytes # 0.4 10^3/uL (0.2-0.9); Monocytes % 5.7 %; Neutrophils # 2.91 10^3/uL (1.8-7.7); Nucleated Red Blood Cells % 0 %; Platelet Count 334 10^3/cmm (157-399); Red Blood Count 4.26 10^6/uL (3.85-5.65); Red Cell Distribution Width 12.4 % (12.1-15.1); White Blood Count 6.46 10^3/uL (3.29-11.43)
[2023-06-27 15:45] VITALS: BP 112/71; PULSE 57; TEMP 36.4; O2SAT 94
== END 2023-07-09 23:59 | disposition home or self-care (01) ==
PROVIDERS: PCP Internal Medicine; Visit Provider Nurse Practitioner
DX: K51.90 Ulcerative colitis, unspecified, without complications (principal)
CPT/HCPCS: 85025; 96365; J3380; J7050

== ENCOUNTER 2023-07-05 14:11 | Outpatient (CLI) | payer MEDICARE, OTHER, SELFPAY ==
[2023-07-05 15:09] LABS: Thyroid Stimulating Hormone 0.33 uIU/mL (0.27-4.20)
[2023-07-06 07:40] LABS: T3 Total 196 ng/dL (76-181)
== END 2023-07-05 14:12 | disposition home or self-care (01) ==
LOC: LAB 14:13
PROVIDERS: PCP Internal Medicine; Visit Provider Internal Medicine
DX: R06.09 Other forms of dyspnea (principal); E05.90 Thyrotoxicosis, unspecified without thyrotoxic crisis or storm; E04.2 Nontoxic multinodular goiter
CPT/HCPCS: 36415; 84439; 84443; 84480

== ENCOUNTER 2023-08-01 07:39 | Outpatient (CLI) | payer MEDICARE, OTHER, SELFPAY ==
--- NOTE | 2023-08-02 08:01 | NM_ITS ---
NOTE: Report was unsigned for reason: Order was edited. Original Signature date and time was: 08/02/23 @ 1027 WS: [id number] NUCLEAR MEDICINE 24 HOUR I-123 THYROID UPTAKE INDICATION: Hyperthyroidism. Multiple thyroid nodules. TECHNIQUE: I-123 24 HOUR THYROID UPTAKE WITH PLANAR IMAGING. 135 UCI TOM 123 COMPARISON: Ultrasound thyroid 06/15/2023 FINDINGS: Increased 24-hour thyroid uptake measuring 48.26%. Asymmetric increased focal uptake RIGHT mid and lower thyroid. No visualized cold defects. NORMAL 24H THRYOID UPTAKE 8-35% IMPRESSION: Increased 24-hour thyroid uptake 48.26%. Asymmetric increased uptake RIGHT mid and inferior thyroid corresponds to the previously described nodules RIGHT mid and inferior thyroid seen on ultrasound. MTDD
== END 2023-08-01 07:40 | disposition home or self-care (01) ==
LOC: RAD 07:40
PROVIDERS: PCP Internal Medicine; Visit Provider Internal Medicine
DX: E04.2 Nontoxic multinodular goiter (principal); E05.90 Thyrotoxicosis, unspecified without thyrotoxic crisis or storm
CPT/HCPCS: 78014; A9516

== ENCOUNTER 2023-08-08 14:24 | Oncology outpatient (recurring) (ONCR) | payer MEDICARE, OTHER, SELFPAY ==
[2023-08-08 15:16] LABS: Basophils % 0.5 %; Eosinophils # 0.5 10^3/uL (0.0-0.8); Eosinophils % 5.7 %; Hematocrit 39.8 % (36-47); Lymphocytes # 2.8 10^3/uL (0.8-4.8); Lymphocytes % 32.5 %; Mean Corpuscular HGB Conc 31.4 g/dL (30-55); Mean Corpuscular Hemoglobin 29.3 pg (27-33); Mean Corpuscular Volume 93.2 fl (85-98); Mean Platelet Volume 9.7 fL (7.4-10.4); Monocytes # 0.5 10^3/uL (0.2-0.9); Monocytes % 6.2 %; Neutrophils # 4.71 10^3/uL (1.8-7.7); Neutrophils % 54.9 %; Nucleated Red Blood Cells % 0 %; Platelet Count 361 10^3/cmm (157-399); Red Blood Count 4.27 10^6/uL (3.85-5.65); Red Cell Distribution Width 12.6 % (12.1-15.1); White Blood Count 8.58 10^3/uL (3.29-11.43)
[2023-08-08] MEDS: vedolizumab 300 MG in sodium chloride 0.9% 250 ML 500 MG IV (15:49)
[2023-08-08 16:23] VITALS: BP 103/63; PULSE 78; RESP 16; TEMP 36.4; O2SAT 94
== END 2023-08-08 23:59 | disposition home or self-care (01) ==
PROVIDERS: PCP Internal Medicine; Visit Provider Nurse Practitioner
DX: K51.90 Ulcerative colitis, unspecified, without complications (principal)
CPT/HCPCS: 85025; 96413; J3380; J7050

== ENCOUNTER → 2023-09-13 10:52 | Outpatient (BNVA) | payer MEDICARE, OTHER, SELFPAY | PROVIDERS: PCP Internal Medicine; Visit Provider Internal Medicine | DX: E05.90 Thyrotoxicosis, unspecified without thyrotoxic crisis or storm; E04.2 Nontoxic multinodular goiter; K52.9 Noninfective gastroenteritis and colitis, unspecified; R06.09 Other forms of dyspnea | CPT/HCPCS: 36415; 84439; 84443; 84480; 99214 ==

== ENCOUNTER 2023-09-19 14:18 | Oncology outpatient (recurring) (ONCR) | payer MEDICARE, OTHER, SELFPAY ==
[2023-09-19 14:35] VITALS: BP 94/63; PULSE 64; RESP 16; TEMP 36.6; O2SAT 92
[2023-09-19 14:51] LABS: Basophils # 0.1 10^3/uL (0.0-0.1); Basophils % 0.7 %; Eosinophils # 0.6 10^3/uL (0.0-0.8); Eosinophils % 7.3 %; Hematocrit 38.2 % (36-47); Lymphocytes # 2.5 10^3/uL (0.8-4.8); Lymphocytes % 29.6 %; Mean Corpuscular HGB Conc 30.9 g/dL (30-55); Mean Corpuscular Volume 90.7 fl (85-98); Monocytes # 0.6 10^3/uL (0.2-0.9); Monocytes % 6.9 %; Neutrophils # 4.75 10^3/uL (1.8-7.7); Neutrophils % 55.3 %; Nucleated Red Blood Cells % 0 %; Platelet Count 332 10^3/cmm (157-399); Red Blood Count 4.21 10^6/uL (3.85-5.65); Red Cell Distribution Width 14.4 % (12.1-15.1); White Blood Count 8.59 10^3/uL (3.29-11.43)
[2023-09-19] MEDS: vedolizumab 300 MG in sodium chloride 0.9% 250 ML 500 MG IV (14:59)
[2023-09-19 15:40] VITALS: BP 106/68; PULSE 78; RESP 18; TEMP 36.6; O2SAT 98
== END 2023-10-08 23:59 | disposition home or self-care (01) ==
PROVIDERS: PCP Internal Medicine; Visit Provider Nurse Practitioner
DX: K51.90 Ulcerative colitis, unspecified, without complications (principal)
CPT/HCPCS: 85025; 96413; J3380; J7050

== ENCOUNTER 2023-11-01 13:30 | Oncology outpatient (recurring) (ONCR) | payer MEDICARE, OTHER, SELFPAY ==
--- NOTE | 2023-10-31 15:22 | PC.NURSE ---
Patient to clinic for infusion, premedication was not taken at home. Provider office was called but no provider in office to give telephone order. patient rescheduled for 11/01/23. Patient verbalized understanding and education provided to patient to ensure premedications taken at home per orders.
[2023-11-01 14:00] VITALS: BP 99/63; PULSE 67; RESP 16; O2SAT 90
[2023-11-01] MEDS: vedolizumab 300 MG in sodium chloride 0.9% 250 ML 500 MG IV (14:27)
[2023-11-01 14:58] VITALS: BP 107/70; PULSE 68; RESP 16; TEMP 36.4; O2SAT 92
[2023-11-01 15:22] LABS: Basophils % 0.6 %; Eosinophils # 0.5 10^3/uL (0.0-0.8); Eosinophils % 7.4 %; Hematocrit 33.4 % (36-47); Lymphocytes # 2.4 10^3/uL (0.8-4.8); Lymphocytes % 35.2 %; Mean Corpuscular HGB Conc 30.8 g/dL (30-55); Mean Corpuscular Hemoglobin 27.5 pg (27-33); Mean Corpuscular Volume 89.1 fl (85-98); Monocytes # 0.5 10^3/uL (0.2-0.9); Monocytes % 6.7 %; Neutrophils # 3.36 10^3/uL (1.8-7.7); Nucleated Red Blood Cells % 0 %; Platelet Count 345 10^3/cmm (157-399); Red Blood Count 3.75 10^6/uL (3.85-5.65); Red Cell Distribution Width 14.6 % (12.1-15.1); White Blood Count 6.73 10^3/uL (3.29-11.43)
== END 2023-11-08 23:59 | disposition home or self-care (01) ==
PROVIDERS: PCP Internal Medicine; Visit Provider Nurse Practitioner
DX: Z53.9 Procedure and treatment not carried out, unspecified reason (principal); K51.90 Ulcerative colitis, unspecified, without complications; Z79.620 Long term (current) use of immunosuppressive biologic
CPT/HCPCS: 85025; 96413; J3380; J7050

== ENCOUNTER → 2023-11-27 13:24 | Outpatient (BNVA) | payer MEDICARE, OTHER, SELFPAY | PROVIDERS: PCP Internal Medicine; Visit Provider Nurse Practitioner | DX: Z96.642 Presence of left artificial hip joint (principal) | CPT/HCPCS: 73502; 99213 ==

== ENCOUNTER 2023-12-05 13:12 | Outpatient (CLI) | payer MEDICARE, OTHER, SELFPAY | END 2023-12-05 13:13 | disposition home or self-care (01) | LOC: LAB 13:15 | PROVIDERS: PCP Internal Medicine; Visit Provider Nurse Practitioner | DX: K51.019 Ulcerative (chronic) pancolitis with unspecified complications (principal) | CPT/HCPCS: 83993 ==

== ENCOUNTER 2023-12-15 09:14 | Outpatient (CLI) | payer MEDICARE, OTHER, SELFPAY ==
[2023-12-15 10:08] LABS: Free T4 Free Thyroxine 0.91 ng/dL (0.82-1.77); Thyroid Stimulating Hormone 1.45 uIU/mL (0.27-4.20)
[2023-12-16 08:10] LABS: T3 Total 113 ng/dL (76-181)
== END 2023-12-15 09:15 | disposition home or self-care (01) ==
LOC: LAB 09:17
PROVIDERS: PCP Internal Medicine; Visit Provider Internal Medicine
DX: R06.09 Other forms of dyspnea (principal); E05.90 Thyrotoxicosis, unspecified without thyrotoxic crisis or storm; E04.2 Nontoxic multinodular goiter; K52.9 Noninfective gastroenteritis and colitis, unspecified
CPT/HCPCS: 84439; 84443; 84480; 99214

== ENCOUNTER 2023-12-19 11:27 | Oncology outpatient (recurring) (ONCR) | payer MEDICARE, OTHER, SELFPAY ==
[2023-12-19 12:00] VITALS: BP 101/65; PULSE 69; RESP 16; TEMP 36.7; O2SAT 98
[2023-12-19 12:23] LABS: Basophils % 0.4 %; Eosinophils # 0.1 10^3/uL (0.0-0.8); Eosinophils % 2.1 %; Hematocrit 38.6 % (36-47); Lymphocytes # 2.7 10^3/uL (0.8-4.8); Lymphocytes % 40.5 %; Mean Corpuscular HGB Conc 30.1 g/dL (30-55); Mean Corpuscular Volume 86.5 fl (85-98); Mean Platelet Volume 9.4 fL (7.4-10.4); Monocytes # 0.5 10^3/uL (0.2-0.9); Monocytes % 7.6 %; Neutrophils % 49.3 %; Nucleated Red Blood Cells % 0 %; Platelet Count 287 10^3/cmm (157-399); Red Blood Count 4.46 10^6/uL (3.85-5.65); Red Cell Distribution Width 15.1 % (12.1-15.1); White Blood Count 6.71 10^3/uL (3.29-11.43)
--- NOTE | 2023-12-19 12:28 | PC.NURSE ---
patient reports that she takes her premedication at home prior to arrival, no premedication given prior to infusion.
[2023-12-19] MEDS: vedolizumab 300 MG in sodium chloride 0.9% 250 ML 500 MG IV (12:35)
[2023-12-19 13:11] VITALS: BP 109/69; PULSE 71; TEMP 36.1; O2SAT 96
== END 2024-01-08 23:59 | disposition home or self-care (01) ==
PROVIDERS: PCP Internal Medicine; Visit Provider Nurse Practitioner
DX: K51.90 Ulcerative colitis, unspecified, without complications (principal); Z79.620 Long term (current) use of immunosuppressive biologic; R06.09 Other forms of dyspnea; E05.90 Thyrotoxicosis, unspecified without thyrotoxic crisis or storm; E04.2 Nontoxic multinodular goiter
CPT/HCPCS: 85025; 96413; J3380; J7050

== ENCOUNTER → 2023-12-20 13:03 | Outpatient (BNVA) | payer MEDICARE, OTHER, SELFPAY | PROVIDERS: PCP Internal Medicine; Visit Provider Nurse Practitioner Family | DX: L98.1 Factitial dermatitis (principal); D22.5 Melanocytic nevi of trunk; L57.8 Other skin changes due to chronic exposure to nonionizing radiation; L81.4 Other melanin hyperpigmentation; L82.0 Inflamed seborrheic keratosis; L57.0 Actinic keratosis; L56.5 Disseminated superficial actinic porokeratosis (DSAP); Z85.828 Personal history of other malignant neoplasm of skin | CPT/HCPCS: 17000; 17110; 99213 ==

== ENCOUNTER → 2024-01-01 13:22 | Outpatient (BNVA) | payer MEDICARE, OTHER, SELFPAY | PROVIDERS: PCP Internal Medicine; Visit Provider Internal Medicine Cardiovascular Disease | DX: K51.011 Ulcerative (chronic) pancolitis with rectal bleeding (principal); I49.8 Other specified cardiac arrhythmias; I49.3 Ventricular premature depolarization | CPT/HCPCS: 93005 ==

== ENCOUNTER 2024-03-27 13:08 | Outpatient (CLI) | payer MEDICARE, OTHER, SELFPAY ==
[2024-03-27 14:45] LABS: C.Diff PCR (Lab) NEGATIVE (Negative)
== END 2024-03-27 13:09 | disposition home or self-care (01) ==
PROVIDERS: PCP Internal Medicine; Visit Provider Internal Medicine
DX: K51.90 Ulcerative colitis, unspecified, without complications (principal); R19.7 Diarrhea, unspecified
CPT/HCPCS: 87493

== ENCOUNTER 2024-04-17 13:18 | Outpatient (CLI) | payer MEDICARE, OTHER, SELFPAY ==
[2024-04-17 14:45] LABS: Free T4 Free Thyroxine 1.06 ng/dL (0.82-1.77); Thyroid Stimulating Hormone 0.54 uIU/mL (0.27-4.20)
[2024-04-18 10:39] LABS: T3 Total 108 ng/dL (76-181)
== END 2024-04-17 13:19 | disposition home or self-care (01) ==
LOC: LAB 13:24
PROVIDERS: PCP Internal Medicine; Visit Provider Internal Medicine
DX: E05.90 Thyrotoxicosis, unspecified without thyrotoxic crisis or storm (principal); E04.2 Nontoxic multinodular goiter; R06.09 Other forms of dyspnea
CPT/HCPCS: 36415; 84439; 84443; 84480

== ENCOUNTER → 2024-04-18 10:32 | Outpatient (BNVA) | payer MEDICARE, OTHER, SELFPAY | PROVIDERS: PCP Internal Medicine; Visit Provider Internal Medicine | DX: E04.2 Nontoxic multinodular goiter (principal); R06.09 Other forms of dyspnea; E05.90 Thyrotoxicosis, unspecified without thyrotoxic crisis or storm; K52.9 Noninfective gastroenteritis and colitis, unspecified | CPT/HCPCS: 99214 ==

== ENCOUNTER 2024-05-22 12:59 | Oncology outpatient (recurring) (ONCR) | payer MEDICARE, OTHER, SELFPAY ==
[2024-05-22 13:19] VITALS: BP 112/78; PULSE 84; TEMP 36.3; O2SAT 97
[2024-05-22] MEDS: sodium chloride 0.9% 250 ML 75 ML IV (14:13)
[2024-05-22] MEDS: SODIUM CHLORIDE 0.9% IV (14:13)
[2024-05-22] MEDS: [UNRECOGNIZED DRUG - OTHER] IV (14:13)
[2024-05-22 17:05] VITALS: BP 105/65; PULSE 83; RESP 17; TEMP 35.9; O2SAT 98
== END 2024-06-07 23:59 | disposition home or self-care (01) ==
PROVIDERS: PCP Internal Medicine; Visit Provider Nurse Practitioner
DX: K51.90 Ulcerative colitis, unspecified, without complications (principal); Z79.899 Other long term (current) drug therapy
CPT/HCPCS: 96413; 96415; J2327; J7050

== ENCOUNTER 2024-06-10 14:00 | Emergency (ER) | payer MEDICARE, OTHER, SELFPAY ==
[2024-06-10] VITALS (7 sets, daily range): BP systolic 81–122; BP diastolic 44–67; PULSE 72–103; RESP 16–18; TEMP 36.7; O2SAT 92–100; BMI 22.5
--- NOTE | 2024-06-10 14:54 | XR_ITS ---
WS: [id number] XR chest 1V portable [id number] REASON FOR EXAM: dyspnea/cough FINDINGS: Significant tortuosity and ectasia of the thoracic aorta. Normal heart size. There is accentuation of the minor fissure on the right. There are peripheral reticular interstitial and groundglass lung opacities in the right midlung field. These findings were not present on previous examination of 11/02/2022. Significant osteoarthritis in the left shoulder. Significant degenerative spondylosis in the mid and lower thoracic spine. XR/XR chest 1V portable [id number] IMPRESSION: Peripheral reticular lung opacities with presumably a small amount of fluid in the minor fissure of unknown chronicity but compatible with acute or subacute p neumonitis.
--- NOTE | 2024-06-10 15:12 | CT_ITS ---
WS: [email or web address] CT HEAD NONCONTRAST HISTORY: Headache dizziness sudden onset TECHNIQUE: Contiguous axial imaging performed through the brain. Bone and soft tissue windows. Sagittal and coronal reformats reviewed. All CT scans at [facility] use at least one of these dose optimization techniques: automated exposure control; mA and/or kV adjustment per patient size (includes targeted exams where dose is matched to clinical indication); or iterative reconstruction. DLP: 1075.00 mGy.cm COMPARISON: None available. No acute intracranial hemorrhage, midline shift or mass effect. Mild bilateral frontal lobe atrophy. Mild small vessel ischemic changes throughout the white matter. There is also mild cerebellar atrophy. Ventricles: Normal size with no hydrocephalus. No inferior displacement of the cerebellar tonsils. Paranasal sinuses: Air-fluid levels in the maxillary and sphenoid sinuses. There is mucoperiosteal thickening throughout the ethmoid air cells. Mastoid air cells: Well pneumatized. Calvarium and scalp: Skull is intact with no soft tissue edema or swelling. CT/CT head wo con* [id number] IMPRESSION: 1. No acute intracranial hemorrhage or edema. 2. Mild bilateral frontal lobe atrophy. Mild cerebellar atrophy. 3. Acute paranasal sinusitis. Air-fluid levels in the sphenoid and maxillary s inuses.
--- NOTE | 2024-06-10 15:13 | ECG_ITS ---
[facility] Test Date: 2024-06-10 Pat Name: Valentine Jones Department: Room: Gender: Female [employer] Con[employer]or Tender: : 1955 Requested By: Rome Holley Order Number: [id number] Reading MD: Measurements Intervals Meredith Rate: 91 P: -12 AR: 138 QRS: -17 QRSD: 90 T: 58 QT: 332 QTc: 410 Interpretive Statements SINUS RHYTHM POSSIBLE LEFT ATRIAL ENLARGEMENT [-0.1mV P-WAVE IN V1/V2] [email or web address]
--- NOTE | 2024-06-10 15:13 | W.ED.URI ---
HPI - URI/Sore Throat General: Chief Complaint: ER Hold Stated Complaint: flu like symptoms Time Seen by Provider: 06/10/24 14:39 History of Present Illness: 68-year-old female presents to the emergency room with complaint of shortness of breath and cough began about 2 days ago. Rapidly worsening cough has been productive she has noticed exertional dyspnea. She had difficult time doing ADLs such as brushing her teeth and bathing because of the shortness of breath. Subjectively she has had a bit of a fever sweats chills sensation. Patient does have a history of ulcerative colitis and she is on a monoclonal antibody in addition to this she is on prednisone and has been on taking 40 mg a day for the last couple of weeks she is feeling extremely weak and tired. Associated symptoms: Reports chills and fever(s); Deny abdominal pain or chest pain Related Data Home Medications ?Medication ?Instructions ?Recorded ?Confirmed dicyclomine 20 mg tablet 20 mg PO TID PRN spastic colon 12/15/23 06/10/24 alprazolam 0.5 mg tablet 0.5 - 1 mg PO QPM 06/10/24 06/10/24 fluoxetine 40 mg capsule 40 mg PO QPM 06/10/24 06/10/24 folic acid 1 mg tablet 1 mg PO QAM 06/10/24 06/10/24 methimazole 5 mg tablet 2.5 mg PO QPM 06/10/24 06/10/24 prednisone 20 mg tablet 20 mg PO BID 06/10/24 06/10/24 Allergies Allergy/AdvReac Type Severity Reaction Status Date / Time oxycodone Allergy Severe ADR-Itching Verified 06/10/24 14:10 codeine Allergy Unknown Verified 06/10/24 14:10 infliximab (From Remicade) Allergy ALGY-Hives Verified 06/10/24 14:10 Review of Systems Const: Reports: fever(s), chills, body aches, fatigue and malaise Card: Denies: chest pain Resp: Reports: dyspnea, productive cough, wheezing and chest congestion GI: Denies: abdominal pain : Denies: dysuria, urinary frequency or urinary urgency Musc: Denies: neck pain or back pain Skin/Breast: Denies: rash PFSH ED PFSH: Medical History History of nonmelanoma skin cancer Tobacco abuse Primary osteoarthritis Chronic diarrhea COPD (chronic obstructive pulmonary disease) Generalized anxiety disorder Infliximab (Remicade) long-term use Surgical History History of appendectomy History of cholecystectomy History of back surgery History of colonoscopy Family History Other Cancer Hypertension Social History Smoking and tobacco/nicotine status: never used tobacco/nicotine Household members: significant other Marital status: Current gender identity: Female Physical Exam Const: GENERAL APPEARANCE: cooperative ORIENTATION/CONSCIOUSNESS: Yes awake, Yes oriented to person, Yes oriented to place and Yes oriented to time HENMT: COMMON NORMALS: normocephalic, atraumatic and hearing grossly normal bilaterally HEAD & SCALP: normocephalic and atraumatic Resp: COMMON NORMALS: normal respiratory effort, No retractions and No use of accessory muscles AUSCULTATION: rhonchi and wheezes Cardio: COMMON NORMALS: regular rate, regular rhythm and No murmurs present (Cardio) RATE: regular rate RHYTHM: regular rhythm GI: COMMON NORMALS: Soft to palpation and No hepatosplenomegaly present AUSCULTATION: Yes normoactive bowel sounds PALPATION: Yes Soft to palpation, No Tenderness to palpation present (GI), No Guarding due to palpation present (GI) and Yes No hepatosplenomegaly present Extremity: COMMON NORMALS: normal to inspection, capillary refill normal, no clubbing, cyanosis or edema, no calf tenderness and no pedal edema Neuro: SENSORIUM/ORIENTATION: Yes oriented to person, Yes oriented to place and Yes oriented to time Skin: COMMON NORMALS: no rashes or lesions noted GENERAL SKIN EXAM: no rashes or lesions noted Course Vital Signs: Vital signs: Vital Signs Temperature 98.0 F 06/10/24 14:04 Pulse Rate 72 06/10/24 21:56 Respiratory Rate 18 06/10/24 16:51 Blood Pressure 107/62 06/10/24 21:56 Pulse Oximetry 96 06/10/24 21:56 Oxygen Delivery Me thod Nasal Cannula 06/10/24 21:30 Oxygen Flow Rate 3 06/10/24 21:30 MDM - URI/Sore Throat Medical Decision Making Initially plan was to admit the patient here however due to lack of beds she required transfer. Patient was transferred [facility]. White count elevated she did test positive for RSV. There does appear to be secondary pneumonia as well as started on IV antibiotic. CT of the head was negative labs and imaging reviewed. Transfer review [facility] ambulance services. Lab Data 06/10/24 15:53 06/10/24 15:53 Radiology Impressions Chest X-Ray 06/10/24 14:54 IMPRESSION: Peripheral reticular lung opacities with presumably a small amount of fluid in the minor fissure of unknown chronicity but compatible with acute or subacute pneumonitis. Head CT 06/10/24 15:12 IMPRESSION: 1. No acute intracranial hemorrhage or edema. 2. Mild bilateral frontal lobe atrophy. Mild cerebellar atrophy. 3. Acute paranasal sinusitis. Air-fluid levels in the sphenoid and maxillary sinuses. Chest CT 06/10/24 17:07 IMPRESSION: 1. Slight increased size of 1.8 cm left adrenal nodule measuring 2.5 Hounsfield units centrally most consistent with benign adrenal adenoma. No followup needed. 2. Mild to moderate centrilobular emphysema. 3. Moderate right upper lobe pneumonia in the posterior segment and portions of the anterior segment. 4. Mild left upper lobe and lingular pneumonia. COMMENTS: The presence of pulmonary emphysema on CT is an independent risk factor for lung cancer. In the absence of a history or active diagnosis of lung cancer, it is recommended that this patient with emphysema be evaluated for enrollment in a low dose CT lung cancer screening program. Laboratory Results WBC 24.70 10^3/uL (3.29-11.43) H 06/10/24 15:53 RBC 4.43 10^6/uL (3.85-5.65) 06/10/24 15:53 Hgb 9.50 g/dL (11.27-16.99) L 06/10/24 15:53 Hct 33.8 % (36-47) L 06/10/24 15:53 MCV 76.3 fl (85-98) L 06/10/24 15:53 MCH 21.4 pg (27-33) L 06/10/24 15:53 MCHC 28.1 g/dL (30-55) L 06/10/24 15:53 RDW 18.5 % (12.1-15.1) H 06/10/24 15:53 Plt Count 271 10^3/cmm (157-399) 06/10/24 15:53 MPV 9.9 fL (7.4-10.4) 06/10/24 15:53 Neut % (Auto) 85.5 % 06/10/24 15:53 Lymph % (Auto) 6.8 % 06/10/24 15:53 Boyd % (Auto) 6.8 % 06/10/24 15:53 Eos % (Auto) 0.0 % 06/10/24 15:53 Baso % (Auto) 0.2 % 06/10/24 15:53 Neut # (Auto) 21.10 10^3/uL (1.8-7.7) H 06/10/24 15:53 Lymph # (Auto) 1.7 10^3/uL (0.8-4.8) 06/10/24 15:53 Boyd # (Auto) 1.7 10^3/uL (0.2-0.9) H 06/10/24 15:53 Eos # (Auto) 0.0 10^3/uL (0.0-0.8) 06/10/24 15:53 Baso # (Auto) 0.0 10^3/uL (0.0-0.1) 06/10/24 15:53 Nucleated RBC % (auto) 0.2 % 06/10/24 15:53 Nucleated RBCs # 0.0 /100WBC 06/10/24 15:53 Specimen Type Arterial 06/10/24 15:42 Sample Site Brachial, left 06/10/24 15:42 ABG pH 7.48 (7.35-7.45) H 06/10/24 15:42 ABG pCO2 33.5 mmHg (35-45) L 06/10/24 15:42 ABG pO2 78.4 mmHg (80.0-100.0) L 06/10/24 15:42 ABG PO2/FiO2 Ratio 245 06/10/24 15:42 ABG HCO3 24.6 mmol/L (22-26) 06/10/24 15:42 ABG O2 Saturation 94.4 06/10/24 15:42 ABG Base Excess 1.2 mmol/L (-2.0-2.0) 06/10/24 15:42 Jan Test N/a 06/10/24 15:42 A-a O2 Gradient 13.8 mmHg (5-10) H 06/10/24 15:42 Hematocrit 29.1 % (37-47) L 06/10/24 15:42 Hgb O2 Saturation 93.1 % (95-100) L 06/10/24 15:42 Carboxyhemoglobin 0.3 %THgb (0.4-20.1) L 06/10/24 15:42 Methemoglobin 1.1 % (0.4-1.5) 06/10/24 15:42 Total Hemoglobin 9.5 g/dL (12-16) L 06/10/24 15:42 Sodium 136.0 mmol/L (131-143) 06/10/24 15:42 Potassium 3.8 mmol/L (3.5-5.0) 06/10/24 15:42 Glucose 102.0 mg/dL (70-115) 06/10/24 15:42 Ionized Calcium 1.2 mmol/L (1.1-1.4) 06/10/24 15:42 O2 Delivery Device Nc 06/10/24 15:42 O2 Liters/Min 3.0 % 06/10/24 15:42 FiO2 32.0 % 06/10/24 15:42 Serv[employer] Administrator Developer ID Amh 06/10/24 15:42 Sodium 132 mmol/L (136-145) L 06/10/24 15:53 Potassium 4.0 mmol/L (3.5-5.1) 06/10/24 15:53 Chloride 98 mmol/L (98-107) 06/10/24 15:53 Carbon Dioxide 23 mmol/L (22-29) 06/10/24 15:53 Anion Gap 15.0 (5-19) 06/10/24 15:53 BUN 18 mg/dL (8-23) 06/10/24 15:53 Creatinine 0.8 mg/dL (0.5-0.9) 06/10/24 15:53 GFR Calculation 70.9 mL/min (90-130) L 06/10/24 15:53 Glucose 97 mg/dL (65-115) 06/10/24 15:53 Calculated Osmolality 276 mOsm/kg (285-295) L 06/10/24 15:53 Lactic Acid 2.4 mmol/L (0.5-2.2) H 06/10/24 15:53 Lactic Acid (Sepsis) 2.0 mmol/L (0.5-2.2) 06/10/24 21:10 Calcium 8.8 mg/dL (8.5-10.5) 06/10/24 15:53 Total Bilirubin 0.4 mg/dL (0.15-1.2) 06/10/24 15:53 AST 12 U/L (0-32) 06/10/24 15:53 ALT 14 U/L (0-33) 06/10/24 15:53 Alkaline Phosphatase 90 U/L (35-105) 06/10/24 15:53 C-Reactive Protein 95.4 mg/L (0.0-4.9) H 06/10/24 15:53 Total Protein 6.7 g/dL (6.6-8.7) 06/10/24 15:53 Albumin 3.4 g/dL (3.5-5.2) L 06/10/24 15:53 Globulin 3.3 g/dL (1.3-4.6) 06/10/24 15:53 Procalcitonin 0.98 ng/mL (0-0.5) H 06/10/24 15:53 Random Cortisol 3.12 ug/dL (2.47-19.5) 06/10/24 15:53 Urine Color Yellow (Yellow) 06/10/24 18:26 Urine Appearance Clear (CLEAR) 06/10/24 18:26 Urine pH 5.0 (5-7) 06/10/24 18:26 Ur Specific [place] 1.026 (1.005-1.030) 06/10/24 18:26 Urine Protein 1+ (Negative) A 06/10/24 18:26 Urine Glucose (UA) Negative (Normal) 06/10/24 18: Urine Ketones Trace (Negative) 06/10/24 18:26 Urine Blood Negative (Negative) 06/10/24 18:26 Urine Nitrate Negative (Negative) 06/10/24 18:26 Urine Bilirubin Negative (Negative) 06/10/24 18: Urine Urobilinogen 0.2 mg/dL (Negative) 06/10/24 18:26 Ur Leukocyte Esterase Negative (Negative) 06/10/24 18:26 Urine RBC None /hpf (0-2) 06/10/24 18:26 Urine WBC 0-4 /hpf (0-5) H 06/10/24 18:26 Ur Squamous Epith Cells 0-4 /hpf (0-5) H 06/10/24 18:26 Other Crystals Amm biurate /hpf 06/10/24 18:26 Amorphous Sediment Not Reportable 06/10/24 18:26 Urine Bacteria Trace /hpf (NONE) 06/10/24 18:26 Hyaline Casts 0-4 /lpf H 06/10/24 18:26 Influenza A (PCR) Negative (Negative) 06/10/24 14:58 Influenza Type B (PCR) Negative (Negative) 06/10/24 14:58 RSV (PCR) Positive (Negative) A 06/10/24 14:58 SARS-CoV-2 (PCR) Negative (Negative) 06/10/24 14:58 All radiology interpretation(s) finalized by discharge Discharge Plan Discharge Patient Disposition: Xfer Short-Term Hosp Clinical Impression: Acute hypoxemic respiratory failure, Pneumonia due to respiratory syncytial virus, Secondary bacterial pneumonia Condition: Stable Referrals: Rizwan French MD [Primary Care Provider] - Print Language: Moroccan Coding Level of Care Code ED Flaker Operator for Becky Ramirez
[2024-06-10] MEDS: ipratropium-albuterol 3 mL Neb INHALATION (15:36)
[2024-06-10 15:46] LABS: Influenza A NEGATIVE (Negative); Influenza B NEGATIVE (Negative); SARS-CoV-2 PCR NEGATIVE (Negative)
[2024-06-10 15:49] LABS: Respiratory Syncytial Virus Ce POSITIVE (Negative)
[2024-06-10 15:53] LABS: ABG PCO2 33.5 mmHg (35-45); ABG PH Result 7.48 (7.35-7.45); Alveolar-Arterial Oxygen Gradi 13.8 mmHg (5-10); Arterial Blood Gas Hematocrit 29.1 % (37-47); Base Excess ABG 1.2 mmol/L (-2.0-2.0); Blood Gas Operator Identificat AMH; Blood Gas Sample Site Brachial, left; Blood Gas Sample Type Arterial; Carboxyhemoglobin 0.3 %THgb (0.4-20.1); HCO3 ABG 24.6 mmol/L (22-26); HGB O2 Sat 93.1 % (95-100); Ionized Calcium Level - ABG 1.2 mmol/L (1.1-1.4); Methemoglobin 1.1 % (0.4-1.5); Oxygen Device NC; Oxygen Saturation ABG 94.4; PO2 ABG 78.4 mmHg (80.0-100.0); PO2 FiO2 Ratio Arterial Blood 245; Potassium Level - ABG 3.8 mmol/L (3.5-5.0); Total Hemoglobin 9.5 g/dL (12-16)
[2024-06-10 16:15] LABS: Basophils % 0.2 %; Hematocrit 33.8 % (36-47); Lymphocytes # 1.7 10^3/uL (0.8-4.8); Lymphocytes % 6.8 %; Mean Corpuscular HGB Conc 28.1 g/dL (30-55); Mean Corpuscular Hemoglobin 21.4 pg (27-33); Mean Corpuscular Volume 76.3 fl (85-98); Mean Platelet Volume 9.9 fL (7.4-10.4); Monocytes # 1.7 10^3/uL (0.2-0.9); Monocytes % 6.8 %; Neutrophils % 85.5 %; Nucleated Red Blood Cells % 0.2 %; Platelet Count 271 10^3/cmm (157-399); Red Blood Count 4.43 10^6/uL (3.85-5.65); Red Cell Distribution Width 18.5 % (12.1-15.1)
[2024-06-10] MEDS: methylPREDNISolone sod succ 125 mg/2 mL INJ IVP (16:18)
[2024-06-10] MEDS: piperacillin-tazobactam 3.375 GM in sodium chloride 0.9% (plus) 50 ML IV (16:18)
[2024-06-10 16:39] LABS: Alanine Aminotransferase 14 U/L (0-33); Albumin Level 3.4 g/dL (3.5-5.2); Alkaline Phosphatase 90 U/L (35-105); Aspartate Amino Transferase 12 U/L (0-32); Blood Urea Nitrogen 18 mg/dL (8-23); Calcium 8.8 mg/dL (8.5-10.5); Carbon Dioxide 23 mmol/L (22-29); Chloride 98 mmol/L (98-107); Cortisol Random 3.12 ug/dL (2.47-19.5); Creatinine Clr Calc Pharmacy 65.1678; Globulin 3.3 g/dL (1.3-4.6); Glomerular Filtration Rate 70.9 mL/min (90-130); Glucose 97 mg/dL (65-115); Osmolality Calculated 276 mOsm/kg (285-295); Sodium 132 mmol/L (136-145); Total Bilirubin 0.4 mg/dL (0.15-1.2); Total Protein 6.7 g/dL (6.6-8.7)
--- NOTE | 2024-06-10 17:07 | CTR_ITS ---
PROCEDURE INFORMATION: Exam: CT Chest Without Contrast; Diagnostic Exam date and time: 06/10/2024 6:10 PM Age: 68 years old Clinical indication: Shortness of breath; Additional info: SOB TECHNIQUE: Imaging protocol: Diagnostic computed tomography of the chest without contrast. Radiation optimization: All CT scans at this facility use at least one of these dose optimization techniques: automated exposure control; mA and/or kV adjustment per patient size (includes targeted exams where dose is matched to clinical indication); or iterative reconstruction. COMPARISON: CT angio chest PE protcl [id number] 11/02/2022 4:03 PM RADIATION DOSE METRICS: Total DLP (mGy-cm): 289.68 FINDINGS: Lungs: Mild to moderate centrilobular emphysema. Moderate right upper lobe pneumonia in the posterior segment and portions of the anterior segment. Mild left upper lobe and lingular pneumonia. Pleural spaces: Unremarkable. No pneumothorax. No pleural effusion. Heart: Unremarkable. No cardiomegaly. No pericardial effusion. Coronary arteries: Severe calcified coronary artery disease. Lymph nodes: Unremarkable. No enlarged lymph nodes. Vasculature: Calcification of the thoracic aorta and/or great vessels consistent with atherosclerotic vessel disease. Gallbladder and biliary ducts: Stable cholecystectomy. Adrenal glands: Slight increased size of 1.8 cm left adrenal nodule measuring 2.5 Hounsfield units centrally most consistent with benign adrenal adenoma. No followup needed. Bones/joints: Dextroscoliosis. Severe thoracic spondylosis. Soft tissues: Unremarkable. Other findings: . CT/CT chest [facility] [id number] IMPRESSION: 1. Slight increased size of 1.8 cm left adrenal nodule measuring 2.5 Hounsfield units centrally most consistent with benign adrenal adenoma. No followup needed. 2. Mild to moderate centrilobular emphysema. 3. Moderate right upper lobe pneumonia in the posterior segment and portions of the anterior segment. 4. Mild left upper lobe and lingular pneumonia. COMMENTS: The presence of pulmonary emphysema on CT is an independent risk factor for lung cancer. In the absence of a history or active diagnosis of lung cancer, it is recommended that this patient with emphysema be evaluated for enrollment in a low dose CT lung cancer screening program.
--- NOTE | 2024-06-10 17:19 | PM.HP ---
Providers/Chief Complaint Primary Care Provider: Rizwan French MD Chief Complaint: flu like symptoms History of Present Illness Valentine Jones is a 68 year old female old female with a past medical history of ulcerative colitis on prednisone, Skyrizi, COPD, who presents [facility] due to fatigue, malaise, shortness of breath, nonproductive cough, patient tells me that her has been also sick, she reports quitting smoking a few years ago. Denies any chest pain, palpitations, no nausea, no vomiting, diarrhea. Review of Systems Const: Reports: fatigue and malaise Card: Denies: chest pain Resp: Reports: dyspnea and non-productive cough Medications/Allergies Home Medications ?Medication ?Instructions ?Recorded ?Confirmed ?Last Taken ?Type dicyclomine 20 mg tablet 20 mg PO TID PRN spastic colon 12/15/23 06/10/24 Unknown History alprazolam 0.5 mg tablet 0.5 - 1 mg PO QPM 06/10/24 06/10/24 06/09/24 History fluoxetine 40 mg capsule 40 mg PO QPM 06/10/24 06/10/24 06/09/24 History folic acid 1 mg tablet 1 mg PO QAM 06/10/24 06/10/24 06/10/24 History methimazole 5 mg tablet 2.5 mg PO QPM 06/10/24 06/10/24 06/09/24 History prednisone 20 mg tablet 20 mg PO BID 06/10/24 06/10/24 06/10/24 History Allergies Allergy/AdvReac Type Severity Reaction Status Date / Time oxycodone Allergy Severe ADR-Itching Verified 06/10/24 14:10 codeine Allergy Unknown Verified 06/10/24 14:10 infliximab (From Remicade) Allergy ALGY-Hives Verified 06/10/24 14:10 PFSH Acute PFSH: Medical History History of nonmelanoma skin cancer Tobacco abuse Primary osteoarthritis Chronic diarrhea COPD (chronic obstructive pulmonary disease) Generalized anxiety disorder Infliximab (Remicade) long-term use Surgical History History of appendectomy History of cholecystectomy History of back surgery History of colonoscopy Family History Other Cancer Hypertension Social History Smoking and tobacco/nicotine status: never used tobacco/nicotine Household members: significant other Marital status: Current gender identity: Female Vitals/I&O/Wt Last Vital Signs Temp 98.0 F 06/10/24 14:04 Pulse 96 06/10/24 16:51 Resp 18 06/10/24 16:51 BP 120/67 06/10/24 16:51 Pulse Ox 95 06/10/24 16:51 O2 Del Method Nasal Cannula 06/10/24 16:51 O2 Flow Rate 4 06/10/24 16:51 Weight last 48 hrs Weight 65.317 kg Physical Exam Const: COMMON NORMALS: no acute distress and patient oriented x3 HENMT: COMMON NORMALS: normocephalic HEAD & SCALP: normocephalic Neck/C-Spine: COMMON NORMALS: no JVD Resp: COMMON NORMALS: normal respiratory effort, No retractions and No use of accessory muscles AUSCULTATION: crackles and wheezes Cardio: COMMON NORMALS: no JVD, regular rate, regular rhythm, S1 normal heart sound present and S2 normal heart sound present RATE: regular rate RHYTHM: regular rhythm HEART SOUNDS: S1 normal heart sound present and S2 normal heart sound present GI: COMMON NORMALS: Normal to inspection, nondistended, normoactive bowel sounds present, Soft to palpation and non-tender Extremity: COMMON NORMALS: no calf tenderness and no pedal edema Neuro: COMMON NORMALS: patient oriented x3, CN's II-XII intact bilaterally and moves all extremities Psych: COMMON NORMALS: mental status grossly normal Data 06/10/24 15:53 06/10/24 15:53 Micro: Microbiology 06/10/24 16:00 Blood Culture - Preliminary Blood SPECIMEN COLLECTED 06/10/24 15:53 Blood Culture - Preliminary Blood SPECIMEN COLLECTED A&P Assessment and plan (1) Acute hypoxic respiratory failure: (2) RSV bronchitis: (3) Pneumonia: (4) COPD exacerbation: Plan Acute hypoxic respiratory failure ? Currently on 3 L/immunocompromised 8 ulcerative colitis on Skyrizi ? Secondary to COPD, RSV bronchitis, pneumonia ? Plan ? Solu-Medrol 40 mg IV every 8 hours -DuoNeb -Budesonide ? Rocephin - Azithromycin ? Monitor respiratory status closely - Full code -Lovenox for DVT prophylaxis -Hyperthyroidism continue Tapazole PDMP PDMP Reviewed: Not Reviewed Attestations Medical Necessity Statement*: Patient requires hospitalization, inpatient, greater than 2 minutes, for acute hypoxic respiratory failure, COPD, pneumonia, RSV Diagnoses Acute hypoxic respiratory failure J96.01 RSV bronchitis J20.5 Pneumonia J18.9 COPD exacerbation J44.1
[2024-06-10 17:48] LABS: Lactic Sepsis W/Reflex 2.4 mmol/L (0.5-2.2)
[2024-06-10 18:12] LABS: C Reactive Protein 95.4 mg/L (0.0-4.9)
[2024-06-10 18:18] LABS: Procalcitonin 0.98 ng/mL (0-0.5)
[2024-06-10 19:11] LABS: Reflex Lactate Order REFLEX LACTIC ORDERD
[2024-06-10 19:17] LABS: Add Urine Microscopic? YES; Bacteria Urine TRACE /hpf; Bilirubin Urine Negative (Negative); Blood Urine Negative (Negative); Glucose Urine UA Negative (Normal); Ketones Urine Trace (Negative); Leukocyte Esterase Urine Negative (Negative); Nitrate Urine Negative (Negative); Protein Urine 1+ (Negative); Specific Gravity, Urine 1.026 (1.005-1.030); Squamous Epithelial Cell Urine 0-4 /hpf (0-5); UA Manual Slide Review YES; UA Slide Review UA Slide Review Perf; Urine Appearance Clear (CLEAR); Urine Color Yellow (Yellow); Urobilinogen Urine 0.2 mg/dL (Negative); WBC Urine 0-4 /hpf (0-5)
[2024-06-10 19:27] LABS: Hyaline Casts Urine 0-4 /lpf
[2024-06-10 19:37] LABS: Other Crystals Urine AMM BIURATE /hpf
[2024-06-10] MEDS: pantoprazole 40 mg SDV IVP (20:23)
[2024-06-10] MEDS: enoxaparin 40 mg/0.4 mL Syringe SUBCUT (20:23)
[2024-06-10] MEDS: ALPRAZolam 0.5 mg Tablet PO (20:23)
[2024-06-10] MEDS: methIMAzole 5 MG Tablet 2.5 MG PO (20:40)
== END 2024-06-10 22:00 | disposition short-term general hospital (02) ==
PROVIDERS: Family Medicine; Emergency Provider Family Medicine; PCP Internal Medicine
DX: J96.01 Acute respiratory failure with hypoxia (principal); J12.1 Respiratory syncytial virus pneumonia; Z11.52 Encounter for screening for COVID-19; J44.9 Chronic obstructive pulmonary disease, unspecified; Z85.828 Personal history of other malignant neoplasm of skin
CPT/HCPCS: 36415; 36600; 70450; 71045; 71250; 80051; 80053; 81001; 82330; 82533; 82805; 83605; 84145; 85025; 86140; 87040; 87637; 93005; 94640; 96372; 99284; J1650; J2470; J2543; J2919

== ENCOUNTER → 2024-06-18 13:09 | Outpatient (BNVA) | payer MEDICARE, OTHER, SELFPAY | PROVIDERS: PCP Internal Medicine; Visit Provider Nurse Practitioner Family | DX: B00.1 Herpesviral vesicular dermatitis (principal); K51.80 Other ulcerative colitis without complications; Z79.899 Other long term (current) drug therapy; D22.5 Melanocytic nevi of trunk; L81.4 Other melanin hyperpigmentation; Z08 Encounter for follow-up examination after completed treatment for malignant neoplasm; Z85.828 Personal history of other malignant neoplasm of skin; L82.0 Inflamed seborrheic keratosis; L29.89 Other pruritus; R20.8 Other disturbances of skin sensation; Z78.9 Other specified health status; L53.8 Other specified erythematous conditions | CPT/HCPCS: 17110; 99214 ==

== ENCOUNTER 2024-06-26 13:00 | Oncology outpatient (recurring) (ONCR) | payer MEDICARE, OTHER, SELFPAY ==
[2024-06-26 14:35] VITALS: BP 124/78; PULSE 72; RESP 18; TEMP 36.6; O2SAT 98
[2024-06-26] MEDS: sodium chloride 0.9% 250 ML 75 ML IV (14:38)
[2024-06-26] MEDS: SODIUM CHLORIDE 0.9% IV (14:40)
[2024-06-26] MEDS: [UNRECOGNIZED DRUG - OTHER] IV (14:40)
[2024-06-26 17:07] VITALS: BP 131/63; PULSE 95; RESP 16; TEMP 36.8; O2SAT 92
== END 2024-07-08 23:59 | disposition home or self-care (01) ==
PROVIDERS: PCP Internal Medicine; Visit Provider Nurse Practitioner
DX: K51.90 Ulcerative colitis, unspecified, without complications (principal); Z79.899 Other long term (current) drug therapy
CPT/HCPCS: 96413; 96415; J2327; J7050

== ENCOUNTER 2024-07-24 13:02 | Oncology outpatient (recurring) (ONCR) | payer MEDICARE, OTHER, SELFPAY ==
[2024-07-24 13:48] VITALS: BP 116/73; PULSE 75; RESP 18; TEMP 36.6; O2SAT 99
[2024-07-24] MEDS: [UNRECOGNIZED DRUG - OTHER] IV (14:02)
[2024-07-24] MEDS: SODIUM CHLORIDE 0.9% IV (14:02)
[2024-07-24] MEDS: sodium chloride 0.9% 250 ML 150 ML IV (14:08)
== END 2024-08-07 23:59 | disposition home or self-care (01) ==
LOC: ONCMED 13:03
PROVIDERS: PCP Internal Medicine; Visit Provider Nurse Practitioner
DX: K51.90 Ulcerative colitis, unspecified, without complications (principal); Z79.899 Other long term (current) drug therapy
CPT/HCPCS: 96413; 96415; J2327; J7050

== ENCOUNTER → 2024-12-19 14:08 | Outpatient (BNVA) | payer MEDICARE, OTHER, SELFPAY | PROVIDERS: PCP Internal Medicine; Visit Provider Nurse Practitioner Family | DX: L81.4 Other melanin hyperpigmentation (principal); D18.01 Hemangioma of skin and subcutaneous tissue; Z08 Encounter for follow-up examination after completed treatment for malignant neoplasm; Z85.828 Personal history of other malignant neoplasm of skin; L82.0 Inflamed seborrheic keratosis; L53.8 Other specified erythematous conditions; R20.8 Other disturbances of skin sensation; Z78.9 Other specified health status; L29.89 Other pruritus; L57.0 Actinic keratosis | CPT/HCPCS: 17000; 17110; 99213 ==

== ENCOUNTER → 2025-03-25 13:46 | Outpatient (BNVA) | payer MEDICARE, OTHER, SELFPAY | PROVIDERS: PCP Internal Medicine; Visit Provider Thoracic Surgery (Cardiothoracic Vascular Surgery) | DX: L24.B3 Irritant contact dermatitis related to fecal or urinary stoma or fistula (principal) | CPT/HCPCS: 99203; A6237; A6250 ==